=== PATIENT | female | born 1995 | race Caucasian/White ===

== ENCOUNTER 2016-11-06 23:49 | Emergency (ER) | payer MEDICAID ==
[2016-11-07] MEDS ORDERED: NORMAL SALINE 1000 ML 1,000 ML IV ONE (00:29)
[2016-11-07] MEDS ORDERED: ONDANSETRON HCL INJ/PF 4 MG/2 ML SDV IV ONE (00:29)
[2016-11-07 00:57] LABS: APPEARANCE,URINE SLIGHTLY-CLOUDY; BILIRUBIN,URINE NEGATIVE (NEGATIVE); GLUCOSE, URINE NEGATIVE (NEGATIVE); KETONES,URINE NEGATIVE (NEGATIVE); LEUKOCYTE ESTERASE,URINE NEGATIVE (NEGATIVE); NITRITE,URINE NEGATIVE (NEGATIVE); PROTEIN,URINE NEGATIVE (NEGATIVE); URINE SPECIFIC GRAVITY 1.025; UROBILINOGEN,URINE NEGATIVE mg/dL (<2.0)
[2016-11-07 01:14] LABS: ABSOLUTE EOSINOPHILS # (AUTO) 0.1 10^3/uL (0.0-0.6); ABSOLUTE MONOCYTES (AUTO) 0.5 10^3/uL (0.1-1.4); ABSOLUTE NEUT (AUTO) 4.1 10^3/uL (1.7-8.2); BASOPHILS % (AUTO) 0.2 % (0-2); EOSINOPHILS % (AUTO) 2.1 % (0-6); HEMATOCRIT 40.5 % (36.0-47.0); HEMOGLOBIN 13.7 g/dL (12.0-15.5); HGB HCT DIFFERENCE 0.6; LYMPHOCYTES % (AUTO) 17.6 % (13-45); MEAN CORPUSCULAR HEMOGLOBIN 29.8 pg (27.0-33.4); MEAN CORPUSCULAR HGB CONC 33.8 g/dL (32.0-36.0); MEAN CORPUSCULAR VOLUME 88 fl (80-97); MONOCYTES % (AUTO) 8.1 % (3-13); RED CELL DISTRIBUTION WIDTH 12.8 % (11.5-14.0); WHITE BLOOD COUNT 5.7 10^3/uL (4.0-10.5)
[2016-11-07 01:25] LABS: ALANINE AMINOTRANSFERASE 32 U/L (9-52); ALBUMIN 4.3 g/dL (3.5-5.0); ALKALINE PHOSPHATASE 79 U/L (38-126); ANION GAP 11 (5-19); ASPARTATE AMINO TRANSFERASE 25 U/L (14-36); BILIRUBIN,DIRECT 0.5 mg/dL (0.0-0.4); BILIRUBIN,TOTAL 0.8 mg/dL (0.2-1.3); BLOOD UREA NITROGEN 11 mg/dL (7-20); CALCIUM 9.8 mg/dL (8.4-10.2); CARBON DIOXIDE 25 mmol/L (22-30); CHLORIDE 106 mmol/L (98-107); CREATININE RESULT 0.64 mg/dL (0.52-1.25); GLUCOSE 107 mg/dL (75-110); POTASSIUM 4.5 mmol/L (3.6-5.0); SODIUM 141.7 mmol/L (137-145); TOTAL PROTEIN 7.7 g/dL (6.3-8.2)
--- NOTE | 2016-11-07 02:03 | ER Document Report ---
ED General - General Chief Complaint: Nausea/Vomiting Stated Complaint: PAIN UNDER LEFT BREAST/VOMITING Time Seen by Provider: 11/07/16 00:28 Notes: Patient is a 21-year-old female 3, pulse 1 prior who presents with 8 months of intermittent upper abdominal pain with associated nausea and vomiting. States that the pain occurs 3-4 times per week and is a stabbing, constant pain that lasts approximately 4-5 hours and then resolves. States she came to the emergency department tonight as the pain has not yet resolved within the time frame that it normally does. She has been trying over-the- counter Nexium without any resolution of her symptoms. Notes she is able to tolerate oral intake but she frequently comes nauseated when she attempts to eat. She is uncertain if there is relation of her pain to when she eats. She denies any dyspnea, hemoptysis or pleuritic pain. She has not seen a primary care doctor regarding today's concerns. TRAVEL OUTSIDE OF THE [place] IN LAST 30 DAYS: No - Related Data Allergies/Adverse Reactions: amoxicillin [Amoxicillin] Allergy (Intermediate, Verified 10/16/15 19:39) Hives Cillin family Allergy (Uncoded 10/16/15 19:39) Past Medical History - General Information source: Patient - Social History Smoking Status: Never Smoker Chew tobacco use (# tins/day): No Frequency of alcohol use: None Drug Abuse: None Lives with: Spouse/Significant other Family History: Reviewed & Not Pertinent Patient has suicidal ideation: No Patient has homicidal ideation: No Renal/ Medical History: Denies: Hx Peritoneal Dialysis Past Surgical History: Reports: Hx Section - Immunizations Hx Diphtheria, Pertussis, Tetanus Vaccination: Yes Review of Systems - Review of Systems Notes: Constitutional: Negative for fever. HENT: Negative for sore throat. Eyes: Negative for visual changes. Cardiovascular: Negative for chest pain. Respiratory: Negative for shortness of breath. Gastrointestinal: Positive for abdominal pain, vomiting. Genitourinary: Negative for dysuria. Musculoskeletal: Negative for back pain. Skin: Negative for rash. Neurological: Negative for headaches, weakness or numbness. 10 point ROS negative except as marked above and in HPI. Physical Exam - Vital signs Vitals: Temp Pulse Resp BP Pulse Ox 97.7 F 82 16 134/92 H 100 11/06/16 23:53 11/06/16 23:53 11/06/16 23:53 11/06/16 23:53 11/06/16 23:53 Interpretation: Normal Notes: PHYSICAL EXAMINATION: GENERAL: Well-appearing, well-nourished and in no acute distress. HEAD: Atraumatic, normocephalic. EYES: Pupils equal round and reactive to light, extraocular movements intact, sclera anicteric, conjunctiva are normal. ENT: nares patent, oropharynx clear without exudates. Moist mucous membranes. NECK: Normal range of motion, supple without lymphadenopathy LUNGS: Breath sounds clear to auscultation bilaterally and equal. No wheezes rales or rhonchi. HEART: Regular rate and rhythm without murmurs ABDOMEN: Soft, with epigastric and right upper quadrant tenderness to palpation. normoactive bowel sounds. No guarding, no rebound. No masses appreciated. EXTREMITIES: Normal range of motion, no pitting or edema. No cyanosis. NEUROLOGICAL: No focal neurological deficits. Moves all extremities spontaneously and on command. PSYCH: Normal mood, normal affect. SKIN: Warm, Dry, normal turgor, no rashes or lesions noted. Course - Re-evaluation Re-evalutation: 11/07/16 01:59 Patient presents clinical history and exam most consistent with symptomatic cholelithiasis. Patient has had progressive worsening of right upper quadrant pain worsened by eating but has been able to tolerate some oral intake. Vitals at time of arrival and on multiple reassessments remain non-concerning. Laboratories do not demonstrate a significant leukocytosis, LFT derangements, elevated bilirubin, alkaline phosphatase. A right upper quadrant ultrasound does not demonstrate evidence of acute cholecystitis. Patient is able to tolerate oral intake. At this time will discharge with return precautions and follow-up recommendations. Verbal discharge instructions given a the bedside and opportunity for questions given. Medication warnings reviewed. Patient is in agreement with this plan and has verbalized understanding of return precautions and the need for primary care follow-up in the next 24-72 hours. - Vital Signs Vital signs: Temp Pulse Resp BP Pulse Ox 97.7 F 82 16 134/92 H 100 11/06/16 23:53 11/06/16 23:53 11/06/16 23:53 11/06/16 23:53 11/06/16 23:53 - Laboratory Result Diagrams: 11/07/16 01:00 11/07/16 01:00 Laboratory results interpreted by me: 11/07/16 11/07/16 00:45 01:00 Direct Bilirubin 0.5 H Urine Blood SMALL H - Diagnostic Test Radiology reviewed: Reports reviewed Discharge - Discharge Clinical Impression: Symptomatic cholelithiasis Condition: Good Disposition: HOME, SELF-CARE Additional Instructions: Your ultrasound and history is most consistent with symptomatic cholelithiasis. This means that you have stones in your gallbladder that are causing pain when you eat fatty foods. You will likely need to have your gallbladder out in the coming weeks to prevent further pain. The best thing you can do at this time is to avoid fat-containing foods which will trigger your symptoms. Please contact the general surgeon listed in your discharge paperwork at your earliest ability for consultation regarding removal of your gallbladder. Please return to the emergency department if you develop persistent pain in your abdomen that will not go away, persistent vomiting, fever greater than 100.4F, pass out, or have any other symptoms that are concerning to you. Referrals: DALTON BELTRAN MD [ACTIVE STAFF] - Follow up as needed
--- NOTE | 2016-11-07 02:29 | RADIOLOGY REPORT (SQ) ---
EXAM DESCRIPTION: U/S ABDOMEN LIMITED W/O DOP COMPLETED DATE/TIME: 11/07/2016 2:09 am REASON FOR STUDY: ruq pain COMPARISON: 03/02/2015 TECHNIQUE: Dynamic and static grayscale images acquired of the abdomen and recorded on PACS. Additio nal selected color Doppler and spectral images recorded. LIMITATIONS: None. FINDINGS: PANCREAS: Partially visualized; No masses. Visualized pancreatic duct normal caliber. LIVER: No masses. Hepatic steatosis. LIVER VASCULATURE: Normal directional flow of the main portal vein and hepatic veins. GALLBLADDER: Multiple dependent gallstones without mural thickening or pericholecystic fluid. ULTRASOUND-DETECTED DUMONT'S SIGN: Negative. INTRAHEPATIC DUCTS AND COMMON DUCT: CBD and intrahepatic ducts normal caliber. No filling defects. INFERIOR VENA CAVA: Normal flow. AORTA: No aneurysm. RIGHT KIDNEY: Normal size. Normal echogenicity. No solid or suspicious masses. No hydronephrosis. No calcifications. PERITONEAL AND RIGHT PLEURAL SPACE: No ascites or effusions. OTHER: No other significant findings. IMPRESSION: Cholelithiasis without evidence of cholecystitis. TECHNICAL DOCUMENTATION: JOB ID: [id number] [employer]- All Rights Reserved
[2016-11-07 03:52] VITALS: BP 114/65
== END 2016-11-07 03:49 | disposition home or self-care (01) ==
LOC: ER 23:49
DX: K80.20 Calculus of gallbladder without cholecystitis without obstruction (principal); R11.2 Nausea with vomiting, unspecified; R10.11 Right upper quadrant pain
CPT/HCPCS: 99284; 96361; 96374; 36415; 85025; 80053; 81001; 76705; J2405; J7030

== ENCOUNTER 2017-08-10 03:38 | Observation (INO) | payer SELFPAY ==
[2017-08-10] MEDS ORDERED: KETOROLAC TROMETHAMINE INJ/PF 30 MG/1 ML SDV IV ONE (04:29)
[2017-08-10] MEDS ORDERED: DEXTROSE 5%-WATER 1000 ML 1,000 ML with SODIUM BICARBONATE 150 MEQ IV ONE ×2 (04:29)
[2017-08-10] MEDS ORDERED: NORMAL SALINE 1000 ML 1,000 ML IV ONE (04:29)
[2017-08-10] MEDS ORDERED: FENTANYL CITRATE INJ/PF 100 MCG/2 ML AMPUL IV ONE ×2 (04:29→06:41)
[2017-08-10] MEDS ORDERED: ONDANSETRON HCL INJ/PF 4 MG/2 ML SDV IV ONE (04:29)
--- NOTE | 2017-08-10 04:31 | ER Document Report ---
ED GI/ - General Chief Complaint: Abdominal Pain Stated Complaint: ABDOMINAL PAIN Time Seen by Provider: 08/10/17 04:23 Notes: Patient is a 21-year-old female who comes emergency department for chief complaint of upper abdominal pain that started at about 8 PM tonight, she states pain is sharp, she vomited 3 times, pain radiates around to her mid back. She has been told in the past that she does have gallstones. She denies fever or chills, had a loose bowel movement earlier today, just completed a course of azithromycin for a sinus infection. She denies lower abdominal pain. Only surgical history is . TRAVEL OUTSIDE OF THE [place] IN LAST 30 DAYS: No - Related Data Allergies/Adverse Reactions: amoxicillin [Amoxicillin] Allergy (Intermediate, Verified 10/16/15 19:39) Hives Cillin family Allergy (Uncoded 10/16/15 19:39) Past Medical History - General Information source: Patient - Social History Smoking Status: Never Smoker Frequency of alcohol use: None Drug Abuse: None Lives with: Family Family History: Reviewed & Not Pertinent - Medical History Medical History: Negative Renal/ Medical History: Denies: Hx Peritoneal Dialysis Past Surgical History: Reports: Hx Section - Immunizations Hx Diphtheria, Pertussis, Tetanus Vaccination: Yes Review of Systems - Review of Systems Constitutional: No symptoms reported EENT: No symptoms reported Cardiovascular: No symptoms reported Respiratory: No symptoms reported Gastrointestinal: See HPI Genitourinary: No symptoms reported Female Genitourinary: No symptoms reported Musculoskeletal: No symptoms reported Skin: No symptoms reported Hematologic/Lymphatic: No symptoms reported Neurological/Psychological: No symptoms reported Physical Exam - Vital signs Vitals: Temp Pulse Resp BP Pulse Ox 97.9 F 92 18 112/63 100 08/10/17 03:43 08/10/17 03:43 08/10/17 03:43 08/10/17 03:43 08/10/17 03:43 - General General appearance: Anxious In distress: Moderate - Patient appears to be in pain, holding her abdomen - HEENT Head: Normocephalic, Atraumatic Eyes: Normal Conjunctiva: Normal Extraocular movements intact: Yes Eyelashes: Normal Pupils: PERRL Mouth/Lips: Normal Mucous membranes: Normal Pharynx: Normal Neck: Normal - Respiratory Respiratory status: No respiratory distress Breath sounds: Normal. No: Decreased air movement, Wheezing - Cardiovascular Rhythm: Regular. No: Tachycardia Heart sounds: Normal auscultation, S1 appreciated, S2 appreciated - Abdominal Tenderness: Tender - Tender in the upper abdomen generally, worse in the epigastric area with guarding - Back Back: Normal, Nontender. No: Tender - Extremities General upper extremity: Normal inspection, Nontender, Normal ROM, Normal strength General lower extremity: Normal inspection, Nontender, Normal ROM, Normal strength. 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 Her medications symptoms did resolve. CBC, chemistry unremarkable, lipase unremarkable, test is negative. Urine shows dehydration. Patient was given IV fluids. She has been kept n.p.o. Ultrasound showing multiple gallstones, no acute findings. However on reexamination patient is having pain again. She states she is barely able to eat anything, cannot sleep for several nights because of the pain, and is requiring multiple doses for pain management. Will discuss with surgery. Dr. Brand evaluate the patient, will accept the patient for admission to go to the OR later. - Vital Signs Vital signs: Temp Pulse Resp BP Pulse Ox 97.9 F 105 H 18 112/63 100 08/10/17 04:30 08/10/17 04:30 08/10/17 04:30 08/10/17 04:30 08/10/17 04:30 - Laboratory Result Diagrams: 08/10/17 04:55 08/10/17 04:55 Laboratory results interpreted by me: 08/10/17 08/10/17 04:55 06:30 Carbon Dioxide 21 L Glucose 126 H Urine Protein 30 H Urine Blood MODERATE H Urine Urobilinogen 2.0 H Discharge - Discharge Clinical Impression: Epigastric pain Cholelithiasis Qualifiers: Cholelithiasis location: gallbladder Cholecystitis presence: without cholecystitis Biliary obstruction: without biliary obstruction Qualified Code(s) : K80.20 - Calculus of gallbladder without cholecystitis without obstruction Vomiting Qualifiers: Vomiting type: unspecified Vomiting Intractability: non-intractable Nausea presence: unspecified Qualified Code(s): R11.10 - Vomiting, unspecified Condition: Stable Disposition: ADMITTED OBSERVATION Admitting Provider: Surgicalist Unit Admitted: Surgical Floor
[2017-08-10 05:04] LABS: ABSOLUTE MONOCYTES (AUTO) 0.3 10^3/uL (0.1-1.4); ABSOLUTE NEUT (AUTO) 3.5 10^3/uL (1.7-8.2); BASOPHILS % (AUTO) 0.2 % (0-2); EOSINOPHILS % (AUTO) 0.7 % (0-6); HEMATOCRIT 40.8 % (36.0-47.0); HEMOGLOBIN 14.3 g/dL (12.0-15.5); LYMPHOCYTES % (AUTO) 20.2 % (13-45); MEAN CORPUSCULAR HEMOGLOBIN 30.1 pg (27.0-33.4); MEAN CORPUSCULAR VOLUME 86 fl (80-97); MONOCYTES % (AUTO) 6.3 % (3-13); PLATELET COUNT 175 10^3/uL (150-450); RED BLOOD COUNT 4.74 10^6/uL (3.72-5.28); RED CELL DISTRIBUTION WIDTH 12.7 % (11.5-14.0); SEGMENTED NEUTROPHILS % (AUTO) 72.6 % (42-78); TOTAL CELLS COUNTED % (AUTO) 100 %; WHITE BLOOD COUNT 4.8 10^3/uL (4.0-10.5)
[2017-08-10 05:25] LABS: ALANINE AMINOTRANSFERASE 45 U/L (9-52); ALBUMIN 4.5 g/dL (3.5-5.0); ALKALINE PHOSPHATASE 88 U/L (38-126); ANION GAP 18 (5-19); ASPARTATE AMINO TRANSFERASE 33 U/L (14-36); BILIRUBIN,DIRECT 0.2 mg/dL (0.0-0.4); BILIRUBIN,TOTAL 0.6 mg/dL (0.2-1.3); BLOOD UREA NITROGEN 8 mg/dL (7-20); CALCIUM 9.6 mg/dL (8.4-10.2); CARBON DIOXIDE 21 mmol/L (22-30); CHLORIDE 104 mmol/L (98-107); GLUCOSE 126 mg/dL (75-110); LIPASE 85.6 U/L (23-300); POTASSIUM 3.7 mmol/L (3.6-5.0); SODIUM 142.8 mmol/L (137-145)
--- NOTE | 2017-08-10 06:08 | RADIOLOGY REPORT (SQ) ---
EXAM DESCRIPTION: U/S ABDOMEN LIMITED W/O DOP CLINICAL HISTORY: 21 years, Female, epigastric pain, vomiting COMPARISON: 03/02/15 LIMITATIONS: None. FINDINGS: Moderate hepatic steatosis. Several layering gallstones. Negative sonographic Zurita's test. No intra or extrahepatic duct dilation. 0.4 cm diameter common bile duct. Pancreas, aorta, and 10 cm right kidney appear otherwise unremarkable. No free fluid. IMPRESSION: No acute findings. Cholelithiasis. Moderate hepatic steatosis.
[2017-08-10 06:43] LABS: AMORPHOUS SEDIMENT,URINE TRACE /HPF; APPEARANCE,URINE CLOUDY; BILIRUBIN,URINE NEGATIVE (NEGATIVE); COLOR,URINE AMBER; GLUCOSE, URINE NEGATIVE (NEGATIVE); KETONES,URINE NEGATIVE (NEGATIVE); LEUKOCYTE ESTERASE,URINE NEGATIVE (NEGATIVE); NITRITE,URINE NEGATIVE (NEGATIVE); PROTEIN,URINE 30 mg/dL (NEGATIVE); URINE SPECIFIC GRAVITY 1.032
[2017-08-10] MEDS ORDERED: NORMAL SALINE 1000 ML 1,000 ML IV PRN ×2 (07:12→12:30)
--- NOTE | 2017-08-10 07:55 | PDOC H&P ---
History of Present Illness Admission Date/PCP: 08/10/17 Patient complains of: abdominal pains History of Present Illness: AMANDA VENTURA is a 21 year old female c/o abdominal pains since last night asso nausea with minimal relief with pain meds. Known to have gallstones first noted on previous ED visit a few months ago. Past Surgical History Past Surgical History: Reports: Section Social History Lives with: Family Smoking Status: Never Smoker Frequency of Alcohol Use: None Family History Family History: Reviewed & Not Pertinent Parental Family History Reviewed: No Children Family History Reviewed: No Sibling(s) Family History Reviewed.: No Medication/Allergy Home Medications: Norgestimate-Ethinyl Estradiol [Ortho Tri-Cyclen] 1 tab PO DAILY 08/10/17 Allergies/Adverse Reactions: amoxicillin [Amoxicillin] Allergy (Intermediate, Verified 10/16/15 19:39) Hives Cillin family Allergy (Uncoded 10/16/15 19:39) Review of Systems Constitutional: PRESENT: anorexia Eyes: PRESENT: other Cardiovascular: PRESENT: other - no chest pain Respiratory: PRESENT: other - no dyspnea Gastrointestinal: PRESENT: abdominal pain, nausea Musculoskeletal: PRESENT: other - no joint pain Integumentary: PRESENT: other - no rash Neurological: PRESENT: other - no seizures Endocrine: PRESENT: other - no polyuria nor easy bruisability Physical Exam Vital Signs: Temp Pulse Resp BP Pulse Ox 97.9 F 105 H 18 112/63 100 08/10/17 04:30 08/10/17 04:30 08/10/17 04:30 08/10/17 04:30 08/10/17 04:30 Intake & Output 08/09/17 08/10/17 08/11/17 06:59 06:59 06:59 Weight 87.2 kg General appearance: PRESENT: mild distress Head exam: PRESENT: atraumatic, normocephalic Eye exam: PRESENT: conjunctiva pink Mouth exam: PRESENT: moist Neck exam: PRESENT: full ROM Respiratory exam: PRESENT: clear to auscultation evelina Cardiovascular exam: PRESENT: RRR Pulses: PRESENT: normal radial pulses Vascular exam: PRESENT: normal capillary refill GI/Abdominal exam: PRESENT: soft, tenderness - epigastric and RUQ Rectal exam: PRESENT: deferred Extremities exam: PRESENT: full ROM Musculoskeletal exam: PRESENT: ambulatory Neurological exam: PRESENT: alert, oriented to person, oriented to place, oriented to time, oriented to situation Psychiatric exam: PRESENT: anxious Skin exam: PRESENT: normal color, warm Results Laboratory Results: 08/10/17 04:55 08/10/17 04:55 08/10/17 08/10/17 08/10/17 04:55 04:55 04:55 WBC 4.8 RBC 4.74 Hgb 14.3 Hct 40.8 MCV 86 MCH 30.1 MCHC 35.0 RDW 12.7 Plt Count 175 Seg Neutrophils % 72.6 Lymphocytes % 20.2 Monocytes % 6.3 Eosinophils % 0.7 Basophils % 0.2 Absolute Neutrophils 3.5 Absolute Lymphocytes 1.0 Absolute Monocytes 0.3 Absolute Eosinophils 0.0 Absolute Basophils 0.0 Sodium 142.8 Potassium 3.7 Chloride 104 Carbon Dioxide 21 L Anion Gap 18 BUN 8 Creatinine 0.54 Est GFR ( Amer) > 60 Est GFR (Non-Af Amer) > 60 Glucose 126 H Calcium 9.6 Total Bilirubin 0.6 AST 33 ALT 45 Alkaline Phosphatase 88 Total Protein 7.0 Albumin 4.5 Lipase 85.6 Serum HCG, Qual NEGATIVE Urine Color Urine Appearance Urine pH Ur Specific [place] Urine Protein Urine Glucose (UA) Urine Ketones Urine Blood Urine Nitrite Ur Leukocyte Esterase Urine WBC (Auto) Urine RBC (Auto) 08/10/17 06:30 WBC RBC Hgb Hct MCV MCH MCHC RDW Plt Count Seg Neutrophils % Lymphocytes % Monocytes % Eosinophils % Basophils % Absolute Neutrophils Absolute Lymphocytes Absolute Monocytes Absolute Eosinophils Absolute Basophils Sodium Potassium Chloride Carbon Dioxide Anion Gap BUN Creatinine Est GFR ( Amer) Est GFR (Non-Af Amer) Glucose Calcium Total Bilirubin AST ALT Alkaline Phosphatase Total Protein Albumin Lipase Serum HCG, Qual Urine Color HEATHER Urine Appearance CLOUDY Urine pH 5.0 Ur Specific [place] 1.032 Urine Protein 30 H Urine Glucose (UA) NEGATIVE Urine Ketones NEGATIVE Urine Blood MODERATE H Urine Nitrite NEGATIVE Ur Leukocyte Esterase NEGATIVE Urine WBC (Auto) 3 Urine RBC (Auto) 15 Impressions: Abdomen Ultrasound 08/10/17 04:29 IMPRESSION: No acute findings. Cholelithiasis. Moderate hepatic steatosis. Assessment & Plan - Diagnosis (1) Cholelithiasis Qualifiers: Cholelithiasis location: gallbladder Cholecystitis presence: without cholecystitis Biliary obstruction: without biliary obstruction Qualified Code(s): K80.20 - Calculus of gallbladder without cholecystitis without obstruction - Time Time Spent: 30 to 50 Minutes - Inpatient Certification Based on my medical assessment, after consideration of the patient's comorbidities, presenting symptoms, or acuity I expect that the services needed warrant INPATIENT care.: No I certify that my determination is in accordance with my understanding of Medicare's requirements for reasonable and necessary INPATIENT services [42 CFR 412.3e].: Yes Medical Necessity: Need For IV Fluids, Need for Pain Control, Need for IV Antibiotics, Risk of Complication if Not Cared For in Hospital - Plan Summary Plan Summary: Hydrate IV antibiotics For [place]
[2017-08-10] MEDS ORDERED: VECURONIUM BROMIDE INJ 10 MG VIAL IV ONE (07:59)
[2017-08-10] MEDS ORDERED: NEOSTIGMINE METHYLSULFATE 10 MG/10 ML VIAL ONE (07:59)
[2017-08-10] MEDS ORDERED: GLYCOPYRROLATE INJ 0.4 MG/2 ML VIAL ONE (07:59)
[2017-08-10] MEDS ORDERED: PHENYLEPHRINE HCL INJ/PF 10 MG/1 ML SDV ONE (07:59)
[2017-08-10] MEDS ORDERED: SUCCINYLCHOLINE CHLORIDE INJ 200 MG/10 ML VIAL ONE (07:59)
[2017-08-10] MEDS ORDERED: BUPIVACAINE HCL 0.5%-EPI 1:200000 INJ/PF 30 ML VIAL ONE (08:20)
[2017-08-10] MEDS ORDERED: FENTANYL CITRATE INJ/PF 100 MCG/2 ML AMPUL ONE ×2 (09:27)
[2017-08-10] MEDS ORDERED: MIDAZOLAM 2 MG/2 ML INJ ONE (09:27)
[2017-08-10] MEDS ORDERED: LIDOCAINE 2% INJ-PF (20 MG/ML) 10 ML AMPUL ONE (09:27)
[2017-08-10] MEDS ORDERED: DEXAMETHASONE SOD PHOSPHATE INJ 4 MG/1 ML VIAL ONE (09:27)
[2017-08-10] MEDS ORDERED: ONDANSETRON HCL INJ/PF 4 MG/2 ML SDV ONE (09:27)
[2017-08-10] MEDS ORDERED: PROPOFOL INJ 200 MG/20 ML VIAL IV ONE (09:28)
[2017-08-10] MEDS ORDERED: ACETAMINOPHEN 100 ML IV ONE (09:28)
[2017-08-10] MEDS ORDERED: CEFAZOLIN INJ 1 GM VIAL ONE (09:36)
[2017-08-10] MEDS ORDERED: CLINDAMYCIN 600 MG/D5W RTU 600 MG/50 ML RTUPB IV ONE (10:04)
[2017-08-10] MEDS ORDERED: OXYCODONE-ACETAMINOPHEN 5-325 MG TABLET PO PRN ×3 (10:05→12:29)
[2017-08-10] MEDS ORDERED: MORPHINE SULFATE 10 MG/ML INJ IV PRN (10:05)
[2017-08-10] MEDS ORDERED: DIPHENHYDRAMINE HCL 50 MG/ML VIAL IV PRN (10:05)
[2017-08-10] MEDS ORDERED: ONDANSETRON HCL INJ/PF 4 MG/2 ML SDV IV PRN (10:05)
[2017-08-10] MEDS ORDERED: PROMETHAZINE HCL INJ 25 MG/1 ML VIAL IV PRN ×2 (10:05)
[2017-08-10] MEDS ORDERED: MEPERIDINE HCL/PF INJ 25 MG/1 ML DISP.SYRIN IV PRN (10:05)
[2017-08-10] MEDS ORDERED: FENTANYL CITRATE INJ/PF 100 MCG/2 ML AMPUL IV PRN ×3 (10:05)
[2017-08-10] MEDS ORDERED: PROMETHAZINE HCL INJ 25 MG/1 ML VIAL ONE (11:22)
[2017-08-10] MEDS ORDERED: HYDROMORPHONE HCL INJ/PF 2 MG/ML AMPULE ONE (11:27)
[2017-08-10] MEDS ORDERED: METOPROLOL TARTRATE PF/INJ 5 MG/5 ML SDV IV ONE (12:25)
[2017-08-10 12:28] LABS: ABSOLUTE LYMPHOCYTES (AUTO) 0.7 10^3/uL (0.5-4.7); ABSOLUTE MONOCYTES (AUTO) 0.1 10^3/uL (0.1-1.4); ABSOLUTE NEUT (AUTO) 4.1 10^3/uL (1.7-8.2); BASOPHILS % (AUTO) 0.1 % (0-2); EOSINOPHILS % (AUTO) 0.1 % (0-6); HEMATOCRIT 37.7 % (36.0-47.0); HEMOGLOBIN 13.3 g/dL (12.0-15.5); LYMPHOCYTES % (AUTO) 13.8 % (13-45); MEAN CORPUSCULAR HEMOGLOBIN 30.4 pg (27.0-33.4); MEAN CORPUSCULAR HGB CONC 35.2 g/dL (32.0-36.0); MEAN CORPUSCULAR VOLUME 87 fl (80-97); PLATELET COUNT 163 10^3/uL (150-450); RED BLOOD COUNT 4.37 10^6/uL (3.72-5.28); RED CELL DISTRIBUTION WIDTH 12.6 % (11.5-14.0); TOTAL CELLS COUNTED % (AUTO) 100 %; WHITE BLOOD COUNT 4.9 10^3/uL (4.0-10.5)
[2017-08-10] MEDS ORDERED: HYDROMORPHONE HCL INJ/PF 2 MG/ML AMPULE IV PRN (12:29)
[2017-08-10 12:34] LABS: ANION GAP 10 (5-19); BLOOD UREA NITROGEN 5 mg/dL (7-20); CALCIUM 8.8 mg/dL (8.4-10.2); CARBON DIOXIDE 21 mmol/L (22-30); CHLORIDE 108 mmol/L (98-107); GLUCOSE 120 mg/dL (75-110); POTASSIUM 3.8 mmol/L (3.6-5.0); SODIUM 139.1 mmol/L (137-145)
[2017-08-10] MEDS ORDERED: METOPROLOL SUCCINATE 25 MG TAB.SR.24H PO ONE (12:45)
--- NOTE | 2017-08-10 12:49 | PDOC CONSULTATION ---
Consultation Consult Date: 08/10/17 Attending physician:: KING ANN Consult reason:: Frequent ventricular ectopy and abnormal EKG postop History of Present Illness Admission Date/PCP: 08/10/17 08:01 Patient complains of: Chest pain History of Present Illness: AMANDA VENTURA is a 21 year old female c/o abdominal pains since last night asso nausea with mild relief with pain meds. Known to have gallstones first noted on previous ED visit a few months ago. This history was reviewed and confirmed. Patient underwent cholecystectomy this morning and in recovery was noted to have frequent ventricular ectopy in trigeminy pattern. A stat EKG showed T-wave inversion in anterior precordial and inferior lead. This seems unchanged from previous EKG from 2016 which had shown upright T waves, no ventricular ectopy and a sinus tachycardia rhythm. Patient also described some chest discomfort in the recovery room. She continues to have some discomfort at the incision site of her cholecystectomy surgery. Patient denied any prior history of heart problems. She describes family history of atrial fibrillation. Patient denied any other significant medical issues except for a and history of gallstone. Past Medical History Cardiac Medical History: Reports: None Pulmonary Medical History: Reports: None EENT Medical History: Reports: None Neurological Medical History: Reports: None Endocrine Medical History: Reports: None Renal/ Medical History: Reports: None Malignancy Medical History: Reports: None GI Medical History: Reports: Gastroesophageal Reflux Disease, Other - Cholecystectomy Musculoskeltal Medical History: Reports: None Skin Medical History: Reports: None Psychiatric Medical History: Reports: None Traumatic Medical History: Reports: None Hematology: Reports: None Infectious Medical History: Reports: None Past Surgical History Past Surgical History: Reports: Section Social History Information Source: Patient Lives with: Family Smoking Status: Never Smoker Frequency of Alcohol Use: None - Advance Directive Resuscitation Status: Full Code Family History Family History: Other - History of atrial fibrillation Parental Family History Reviewed: Yes Children Family History Reviewed: Yes Sibling(s) Family History Reviewed.: Yes Medication/Allergy Home Medications: Norgestimate-Ethinyl Estradiol [Ortho Tri-Cyclen] 1 tab PO DAILY 08/10/17 Allergies/Adverse Reactions: amoxicillin [Amoxicillin] Allergy (Intermediate, Verified 10/16/15 19:39) Hives Cillin family Allergy (Uncoded 10/16/15 19:39) Review of Systems Review of Systems: Please see history of present illness and past medical history as wall. Constitutional: No fever or chills reported. Head : No recent chronic headaches, recent head injury. Eyes: No recent eye pain, diplopia, redness, discharge, acute visual changes. Ears: No recent chronic ear pain, acute hearing loss, ear discharge. Oral cavity: No recent ulcerations, bleeding, oral cavity discomfort. Neck: No recent acute neck pain reported. Hematologic: No recent easy bruising or bleeding or hematologic malignancy reported. Lymphatic: No recent lymphatic malignancy, chronic lymphadenopathy reported yet Cardiovascular system review: See history of present illness. No prior history of overt syncope, near syncope or sustained palpitations. Respiratory system review: No recent chronic cough, hemoptysis, blood clots in the lungs reported. Mild Shortness of breath on exertion Gastrointestinal system review: Negative for any recent acute or chronic abdominal pain, hematemesis, melena, recent change in bowel habits. Genitourinary system review: No recent acute or chronic hematuria, flank pain, UTI etc. reported. Skin system review: Negative for any recent abnormal bruising, no rash, no pruritus reported. Neurologic: No prior history of strokes, mini strokes, seizure disorder. Psychologic: No history of major psychosis or major depression reported. Musculoskeletal: Minor aches and pains reported. No acute joint swelling reported. Endocrine: No recent polyuria, polydipsia, recent heat or cold intolerance. Physical Exam Vital Signs: Temp Pulse Resp BP Pulse Ox 97.7 F 89 18 132/89 H 100 08/10/17 07:59 08/10/17 07:59 08/10/17 07:59 08/10/17 07:59 08/10/17 07:59 Intake & Output 08/09/17 08/10/17 08/11/17 06:59 06:59 06:59 Intake Total 400 Output Total 400 Balance 0 Exam: GENERAL: well-nourished and in no acute distress. Alert and oriented x3 HEAD: Atraumatic, normocephalic. EYES: Pupils equal round and reactive to light, extraocular movements intact, sclera anicteric, conjunctiva are normal. ENT: TMs normal, nares patent, oropharynx clear without exudates. Moist mucous membranes. No oral ulcerations or bleeding gums noted NECK: supple without lymphadenopathy. Trachea is central. No cervical or axillary lymphadenopathy noted. Carotids are 2+, JVD WNL LUNGS: Respiration seems nonlabored, no significant accessory muscle action noted. Breath sounds clear to auscultation bilaterally and equal noted. No wheezes rales or rhonchi noted. No significant dullness noted on percussion. CHEST: Palpation of the chest wall shows no significant chest wall tenderness. No other significant abnormalities noted. 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 ABDOMEN: Soft, epigastric and right upper quadrant significant tenderness appreciated, normoactive bowel sounds. No guarding, no rebound. No rigidity noted . No masses appreciated. EXTREMITIES: Pedal pulses are 1-2+, no calf tenderness noted. No clubbing or cyanosis.trace negative pedal edema noted NEUROLOGICAL: Focused neurological exam showed no significant neurologic deficit. Normal speech, no focal weakness appreciated. PSYCH: Normal mood, normal affect. Judgment and insight within normal limits. SKIN: No significant ecchymosis, rash, ulcerations or signs of pruritus noted. MUSCULOSKELETAL EXAM: No significant joint swelling noted. Results Laboratory Results: 08/10/17 11:59 08/10/17 11:59 08/10/17 08/10/17 11:59 11:59 WBC 4.9 RBC 4.37 Hgb 13.3 Hct 37.7 MCV 87 MCH 30.4 MCHC 35.2 RDW 12.6 Plt Count 163 Seg Neutrophils % 83.0 H Lymphocytes % 13.8 Monocytes % 3.0 Eosinophils % 0.1 Basophils % 0.1 Absolute Neutrophils 4.1 Absolute Lymphocytes 0.7 Absolute Monocytes 0.1 Absolute Eosinophils 0.0 Absolute Basophils 0.0 Sodium 139.1 Potassium 3.8 Chloride 108 H Carbon Dioxide 21 L Anion Gap 10 BUN 5 L Creatinine 0.50 L Est GFR ( Amer) > 60 Est GFR (Non-Af Amer) > 60 Glucose 120 H Calcium 8.8 EKG Comments: Shows sinus rhythm, frequent VPCs in trigeminy pattern, nonspecific T-wave inversion inferior and anterior precordial lead. Impressions: Abdomen Ultrasound 08/10/17 04:29 IMPRESSION: No acute findings. Cholelithiasis. Moderate hepatic steatosis. Assessment & Plan - Diagnosis (1) Abnormal EKG Is this a current diagnosis for this admission?: Yes (2) Ventricular ectopy Is this a current diagnosis for this admission?: Yes (3) Chest pain Qualifiers: Chest pain type: unspecified Qualified Code(s): R07.9 - Chest pain, unspecified Is this a current diagnosis for this admission?: Yes (4) Epigastric pain Is this a current diagnosis for this admission?: Yes (5) Insomnia Qualifiers: Insomnia type: unspecified Qualified Code(s): G47.00 - Insomnia, unspecified Is this a current diagnosis for this admission?: Yes - Notes Notes: Patient seen in the PACU unit. Patient noted to have increased ventricular ectopy and some abnormal EKG changes. Give orders for IV Lopressor 5 mg and metoprolol succinate 25 mg p.o. to be given. Possibly effect of anesthesia. Will order a stat 2D echo to look for any structural cardiac abnormalities causing ectopy. As regards chest pain, doubt cardiac etiology in spite of some T-wave changes as pretest probability is pretty low on the list. Further evaluation if needed can be done as an outpatient. Will empirically place patient on proton pump inhibitor. Epigastric pain most likely related to recent surgery. Patient describes significant problems with insomnia. In addition she is noted to have hepatic steatosis. Hepatic steatosis is noted in sleep apnea syndrome. Patient may benefit from Madalyn evaluation as an outpatient. Patient will be monitored. - Time Time Spent: 30 to 50 Minutes - More than 50% of the time spent coordinating care , discussing management plans with involved caregivers. Management plans discussed with involved personnels. Medical decision making was of moderate to high complexity, patient's has multiple comorbidities. Medications reviewed and adjusted accordingly: Yes
--- NOTE | 2017-08-10 13:03 | OPERATIVE REPORT E ---
Operative Report NAME: AMANDA VETNURA : 1995 AGE: 21Y DATE OF SURGERY: 08/10/2017 ROOM: ED24 PREOPERATIVE DIAGNOSIS: CHOLELITHIASIS. POSTOPERATIVE DIAGNOSIS: ACUTE CALCULOUS CHOLECYSTITIS. OPERATION: Laparoscopic cholecystectomy. SURGEON: KING ANN M.D. ANESTHESIA: General. INDICATION: This is a 21-year-old female who has been known to have gallstones from previously being seen in the Emergency Room a few months ago. She came in last night with severe right upper quadrant epigastric pain and the ultrasound revealed gallstones. Her numbers are normal. Her pain has subsided quite a bit with parenteral pain medications. She remained very tender in the epigastric and right upper quadrant, which was radiating to her back. DESCRIPTION OF PROCEDURE: After adequate general anesthesia, the patient was placed in the supine position and the abdomen prepped and draped in the usual sterile fashion. Appropriate timeout was then called. Next, an infraumbilical small incision was made and the fascia identified and subsequently divided, and a Miguelina trocar inserted into the abdominal cavity. CO2 insufflated to a pressure of 15 mmHg. The camera was then inserted. Three other trocars were placed under direct vision, 12 mm in the epigastric, and two 5 mm in the right upper quadrant. The gallbladder was identified and noted to be distended and quite red and thickened wall. The gallbladder was then partially aspirated of whitish fluid through a long needle. The tip of the gallbladder was then subsequently grasped and pulled over the liver. The infundibulum also grasped, and the cystic duct was quite edematous around it. It was then dissected and subsequently clipped with Hemoclips and divided between the Hemoclips. It was quite obvious that the common duct was seen way down from the cystic duct. The cystic artery was then identified and clipped proximally and then divided with the use of Harmonic miriam within the clip and the gallbladder. The gallbladder was then taken off the liver bed with the use of Harmonic miriam. The gallbladder was then completely removed, placed in an Endobag, and pulled out through the umbilical port. The patient had a lot of stones. During the procedure, there was a lot of edema noted indicating acute cholecystitis. Further hemostasis then controlled with the use of spatula cautery. After adequate hemostasis noted and after irrigation, all the trocars were then removed and CO2 allowed to come out through all the trocar sites. The infraumbilical fascial defect closed with [id number] suture using #0 Vicryl, and all the skin incisions closed with running subcuticular 4-0 Vicryl undyed. Marcaine with epinephrine was then injected in the fascia and the skin and sub-Q layers of all the trocar sites. Sterile dressings placed over the operative sites. Needle, instrument, and sponge counts were all correct, and estimated blood loss about 10 mL. The patient then brought to the recovery room in satisfactory condition. DICTATING PHYSICIAN: KING ANN M.D. [id number] PHY#: [id number] ID: [id number] JOB#: [id number] ACCT: [id number] cc:KING NAN M.D. >
--- NOTE | 2017-08-10 13:10 | EKG REPORT ---
SEVERITY:- ABNORMAL ECG - SINUS RHYTHM VENTRICULAR TRIGEMINY NONSPECIFIC INTRAVENTRICULAR CONDUCTION DELAY : Confirmed by: Gómez Guillen MD 10-Aug-2017 13:08:54
--- NOTE | 2017-08-10 13:32 | RADIOLOGY REPORT (SQ) ---
EXAM DESCRIPTION: CHEST SINGLE VIEW COMPLETED DATE/TIME: 08/10/2017 1:24 pm REASON FOR STUDY: POST LAP AHSAN CHEST PAIN COMPARISON: Two-view chest 10/21/2015 EXAM PARAMETERS: NUMBER OF VIEWS: One view. TECHNIQUE: Single frontal radiographic view of the chest acquired. RADIATION DOSE: NA LIMITATIONS: Lordotic portable film, EKG leads over the chest FINDINGS: LUNGS AND PLEURA: No opacities, masses or pneumothorax. No pleural effusion. MEDIASTINUM AND HILAR STRUCTURES: No masses. Contour normal. HEART AND VASCULAR STRUCTURES: Heart normal in size. Normal vasculature. BONES: No acute findings. HARDWARE: None in the chest. Clips right upper quadrant post cholecystectomy OTHER: There is trace right and left subdiaphragmatic free air, patient post cholecystectomy IMPRESSION: Trace subdiaphragmatic free air likely postoperative in nature. No acute infiltrates. No pleural effusion or pneumothorax. TECHNICAL DOCUMENTATION: JOB ID: [id number] [employer]- All Rights Reserved Reading location - IP/workstation name: [email or web address]
[2017-08-10] MEDS ORDERED: PANTOPRAZOLE SODIUM 40 MG VIAL IV ONE (14:00)
[2017-08-10] MEDS: CLINDAMYCIN 600 MG/D5W RTU 600 MG/50 ML RTUPB IV SCH ×2 (15:56→21:22)
[2017-08-10] MEDS: LANSOPRAZOLE 30 MG TAB.RAP.DR PO SCH (17:58)
--- NOTE | 2017-08-10 18:45 | XCELERA REPORT ---
[address] [address] Transthoracic Echocardiogram Report Name: AMANDA VENTURA Age: 21 yrs Gender: Female : 1995 Patient Status: Inpatient Patient Location: [address] [place] [address] Study Date: 08/10/2017 01:38 PM Height: 62 in Weight: 192 lb BSA: 1.9 m2 Procedure: A complete two-dimensional transthoracic echocardiogram was performed (2D, M-mode, spectral and color flow Doppler). The study was technically difficult with many images being suboptimal in quality. Reason For Study: PVC'S CHEST PAIN ABNL EKG POST OP Ordering Physician: FABRICIO MATA Performed By: Archana Corado Interpretation Summary The left ventricular ejection fraction is preserved. There is borderline concentric left ventricular hypertrophy. LV diastolic function could not be adequately assessed. The left ventricle is grossly normal size. Wall motion cannot be accurately commented on, but no definite regional wall motion abnormalities noted. Right ventricular function cannot be assessed due to poor image quality. The left atrial size is normal. There is no mitral valve stenosis. There is a trace amount of mitral regurgitation No aortic regurgitation is present. There is no aortic valve stenosis There is a trace or physiologic amount of tricuspid regurgitation Tricuspid regurgitation jet envelope not well defined to measure RV systolic pressure accurately. The aortic root is not well visualized but is probably normal size. The inferior vena cava was not well visualized There is a mild amount of pulmonic regurgitation There is no pericardial effusion. MMode/2D Measurements & Calculations RVDd: 2.4 cm LVIDd: 4.4 cm FS: 36.7 % Ao root diam: 2.4 cm IVSd: 1.1 cm LVIDs: 2.8 cm EDV(Teich): 86.4 ml LVPWd: 0.97 cm ESV(Teich): 28.7 ml Ao root area: 4.5 cm2 EF(Teich): 66.8 % LA dimension: 2.8 cm Doppler Measurements & Calculations MV E max cristina: MV P1/2t max cristina: Ao V2 max: LV V1 max P.7 cm/sec 64.2 cm/sec 103.4 cm/sec 2.3 mmHg MV A max cristina: MV P1/2t: 66.5 msec Ao max PG: LV V1 max: 50.8 cm/sec 4.3 mmHg 76.0 cm/sec MV E/A: 1.3 MVA(P1/2t): 3.3 cm2 MV dec slope: 282.6 cm/sec2 PA V2 max: PI end-d cristina: TR max cristina: 74.0 cm/sec 101.8 cm/sec 217.2 cm/sec PA max PG: TR max P.2 mmHg 18.9 mmHg Left Ventricle The left ventricle is grossly normal size. There is borderline concentric left ventricular hypertrophy. The left ventricular ejection fraction is preserved. LV diastolic function could not be adequately assessed. Wall motion cannot be accurately commented on, but no definite regional wall motion abnormalities noted. Right Ventricle The right ventricle is not well visualized secondary to technical limitations. Right ventricular function cannot be assessed due to poor image quality. Atria The left atrial size is normal. Interarterial septum not well visualized and not well dopplered. Cannot comment on ASD/PFO presence. Mitral Valve The mitral valve is grossly normal. There is no mitral valve stenosis. There is a trace amount of mitral regurgitation. Aortic Valve The aortic valve is grossly normal. There is no aortic valve stenosis. No aortic regurgitation is present. Tricuspid Valve The tricuspid valve is not well visualized secondary to technical limitations. There is no tricuspid stenosis. There is a trace or physiologic amount of tricuspid regurgitation. Tricuspid regurgitation jet envelope not well defined to measure RV systolic pressure accurately. Pulmonic Valve The pulmonic valve is not well visualized. There is a mild amount of pulmonic regurgitation. Great Vessels The aortic root is not well visualized but is probably normal size. The inferior vena cava was not well visualized. Effusions There is no pericardial effusion. : FABRICIO MATA > Fabricio Mata
[2017-08-10] MEDS: HYDROCODONE/ACETAMINOPHEN 5-325 MG TABLET PO PRN (19:52)
[2017-08-11] MEDS: HYDROCODONE/ACETAMINOPHEN 5-325 MG TABLET PO PRN ×2 (00:06→08:40)
[2017-08-11] MEDS: CLINDAMYCIN 600 MG/D5W RTU 600 MG/50 ML RTUPB IV SCH ×2 (02:40→08:33)
[2017-08-11] MEDS: LANSOPRAZOLE 30 MG TAB.RAP.DR PO SCH (06:38)
[2017-08-11] MEDS ORDERED: METOPROLOL SUCCINATE 25 MG TAB.SR.24H PO SCH (10:00)
--- NOTE | 2017-08-11 10:26 | PDOC PROGRESS REPORT ---
Subjective Progress Note for:: 08/11/17 Subjective:: Patient seems to be doing better with significant improvement. Pt is denying any chest arm or neck discomfort. Patient denying any PND, orthopnea. Patient denied any sustained palpitations, dizziness, syncope, near syncope. Patient denying any fever chills. Patient denying any other significant discomfort. Patient is maintaining sinus rhythm. Review of systems: Rest review of systems negative. Medications: Medications have been reviewed. Reason For Visit: CHOLELITHIASIS,VOMITING,EPIGASTRIC PAIN Physical Exam Vital Signs: Temp Pulse Resp BP Pulse Ox 97.8 F 88 16 115/80 100 08/11/17 07:56 08/11/17 07:56 08/11/17 07:56 08/11/17 07:56 08/11/17 07:56 Intake & Output 08/10/17 08/11/17 08/12/17 06:59 06:59 06:59 Intake Total 4080 Output Total 1120 Balance 2960 Exam: GENERAL: well-nourished and in no acute distress. Alert and oriented x3 HEAD: Atraumatic, normocephalic. EYES: Pupils equal round and reactive to light, extraocular movements intact, sclera anicteric, conjunctiva are normal. ENT: TMs normal, nares patent, oropharynx clear without exudates. Moist mucous membranes. No oral ulcerations or bleeding gums noted NECK: supple without lymphadenopathy. Trachea is central. No cervical or axillary lymphadenopathy noted. Carotids are 2+, JVD WNL LUNGS: Respiration seems nonlabored, no significant accessory muscle action noted. Breath sounds clear to auscultation bilaterally and equal noted. No wheezes rales or rhonchi noted. No significant dullness noted on percussion. CHEST: Palpation of the chest wall shows no significant chest wall tenderness. No other significant abnormalities noted. 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 ABDOMEN: Soft, slight right upper quadrant tenderness appreciated, normoactive bowel sounds. No guarding, no rebound. No rigidity noted . No masses appreciated. EXTREMITIES: Pedal pulses are 1-2+, no calf tenderness noted. No clubbing or cyanosis.trace pedal edema noted NEUROLOGICAL: Focused neurological exam showed no significant neurologic deficit. Normal speech, no focal weakness appreciated. PSYCH: Normal mood, normal affect. Judgment and insight within normal limits. SKIN: No significant ecchymosis, rash, ulcerations or signs of pruritus noted. MUSCULOSKELETAL EXAM: No significant joint swelling noted. Results Laboratory Results: 08/10/17 11:59 08/10/17 11:59 08/10/17 08/10/17 11:59 11:59 WBC 4.9 RBC 4.37 Hgb 13.3 Hct 37.7 MCV 87 MCH 30.4 MCHC 35.2 RDW 12.6 Plt Count 163 Seg Neutrophils % 83.0 H Lymphocytes % 13.8 Monocytes % 3.0 Eosinophils % 0.1 Basophils % 0.1 Absolute Neutrophils 4.1 Absolute Lymphocytes 0.7 Absolute Monocytes 0.1 Absolute Eosinophils 0.0 Absolute Basophils 0.0 Sodium 139.1 Potassium 3.8 Chloride 108 H Carbon Dioxide 21 L Anion Gap 10 BUN 5 L Creatinine 0.50 L Est GFR ( Amer) > 60 Est GFR (Non-Af Amer) > 60 Glucose 120 H Calcium 8.8 EKG Comments: Telemetry strips shows sinus rhythm without any sustained tacky or bradycardia arrhythmias. Impressions: Chest X-Ray 08/10/17 00:00 IMPRESSION: Trace subdiaphragmatic free air likely postoperative in nature. No acute infiltrates. No pleural effusion or pneumothorax. Abdomen Ultrasound 08/10/17 04:29 IMPRESSION: No acute findings. Cholelithiasis. Moderate hepatic steatosis. Assessment & Plan - Diagnosis (1) Abnormal EKG Is this a current diagnosis for this admission?: Yes (2) Ventricular ectopy Is this a current diagnosis for this admission?: Yes (3) Chest pain Qualifiers: Chest pain type: unspecified Qualified Code(s): R07.9 - Chest pain, unspecified Is this a current diagnosis for this admission?: Yes (4) Epigastric pain Is this a current diagnosis for this admission?: Yes (5) Insomnia Qualifiers: Insomnia type: unspecified Qualified Code(s): G47.00 - Insomnia, unspecified Is this a current diagnosis for this admission?: Yes - Notes Notes: Abnormal electrocardiogram: 2D echo shows normal LVEF. However study was technically difficult. Will recommend a treadmill stress test as an outpatient. Ventricular ectopy: 2D echo shows normal LVEF, which puts her at low risk. However continue beta-robert therapy. Chest pain: Possibly acid reflux. Continue proton pump inhibitor. Epigastric pain: Improved Insomnia: Patient may have associated sleep apnea syndrome. Patient can follow- up with me if for her cardiac and sleep issues. Patient is cleared for discharge on beta-robert. Patient should have a follow- up appointment. - Time Time with patient: 15-25 minutes - CODE STATUS was discussed, patient remains full code. Surrogate decision-maker patient's . Multiple medical problems were addressed. More than 50% of the time spent coordinating care, discussing management plans with involved caregivers. Management plans discussed with involved personnels. Medical decision making was of moderate to high complexity, patient's has multiple comorbidities. Medications reviewed and adjusted accordingly: Yes
[2017-08-11 10:48] VITALS: BP 132/89
--- NOTE | 2017-08-12 08:08 | DISCHARGE SUMMARY E ---
Discharge Summary NAME: AMANDA VENTURA : 1995 AGE: 21Y ADMITTED: 08/10/2017 DISCHARGED: 08/11/2017 FINAL DIAGNOSIS: Acute calculous cholecystitis. PROCEDURE DONE: On 08/10/17 laparoscopic cholecystectomy. HOSPITAL COURSE: This is a 21-year-old female who underwent laparoscopic cholecystectomy for acute calculous cholecystitis on 08/10/17. Postoperatively, patient noted to have some PVCs and Cardiology was consulted. The patient had an echocardiogram and read by the car servicer. The patient apparently has been having unifocal PVCs. She was then discharged improved on 25 mg of Toprol-XL daily. She will be followed in the surgical clinic in 2 weeks and with her primary medical physician or car servicer, Dr. Herrera, in the next few weeks. She was advised not to do any lifting for the next 2 weeks. DICTATING PHYSICIAN: KING ANN M.D. [id number] PHY#: [id number] ID: [id number] JOB#: [id number] ACCT: [id number] cc:Nasim LANGSTON PA >
== END 2017-08-11 11:49 | disposition home or self-care (01) ==
LOC: ER 03:38 → EH 08:01 → 4S 14:32
PROVIDERS: ATTEND Surgery
PROC: 0FT44ZZ Resection of Gallbladder, Percutaneous Endoscopic Approach (ICD-10-PCS; principal; 2017-08-10 09:30)
DX: K80.10 Calculus of gallbladder with chronic cholecystitis without obstruction (principal); I97.89 Other postprocedural complications and disorders of the circulatory system, not elsewhere classified; I49.3 Ventricular premature depolarization; R07.89 Other chest pain; R94.31 Abnormal electrocardiogram [ECG] [EKG]; Y83.6 Removal of other organ (partial) (total) as the cause of abnormal reaction of the patient, or of later complication, without mention of misadventure at the time of the procedure; G47.00 Insomnia, unspecified; K76.0 Fatty (change of) liver, not elsewhere classified; Z82.49 Family history of ischemic heart disease and other diseases of the circulatory system; Z79.3 Long term (current) use of hormonal contraceptives; Z87.19 Personal history of other diseases of the digestive system
CPT/HCPCS: 96376; 99285; 96361; 96374; 96375; 36415; 83690; 84703; 85025; 80048; 80053; 81001; 88304 ×2; 93306; 71045; 76705; 93005; 93010; 47562; G0378 ×3; J2250; J3490 ×4; J1100; J3010; J1885; J1170; J2370; S0164; J2550; J0330; J2405; J7030; J2704; J0131; 790; J0690

== ENCOUNTER 2018-12-26 12:03 | Emergency (ER) | payer MEDICAID ==
[2018-12-26] MEDS ORDERED: ACETAMINOPHEN 325 MG TABLET PO ONE ×2 (12:33→18:19)
--- NOTE | 2018-12-26 12:35 | ER Document Report ---
ED Medical Screen (RME) - General Chief Complaint: Flank Pain Stated Complaint: FLANK PAIN Time Seen by Provider: 12/26/18 12:28 Primary Care Provider: CHEYENNE KAPLAN CNM [Primary Care Provider] - Follow up as needed Mode of Arrival: Medic Information source: Patient, Relative Notes: Patient presents emergency department via EMS with complaints of right-sided flank pain radiates to her right lower quad.. Reports it started Wednesday. Reports she is been diagnosed recently with UTI and is taking Macrobid. She reports vomited once from the pain. Reports she is experience hematuria. Patient is approximately 11 weeks G2, P1 patient is moaning took 1 Tyl enol 500 mg this morning at 530. I have greeted and performed a rapid initial assessment of this patient. A comprehensive ED assessment and evaluation of the patient, analysis of test results and completion of the medical decision making process will be conducted by additional ED providers. Dictation of this chart was performed using voice recognition software; therefore, there may be some unintended grammatical errors. TRAVEL OUTSIDE OF THE [place] IN LAST 30 DAYS: No - Related Data Allergies/Adverse Reactions: amoxicillin [Amoxicillin] Allergy (Intermediate, Verified 10/16/15 19:39) Hives Cillin family Allergy (Uncoded 10/16/15 19:39) Past Medical History Renal/ Medical History: Denies: Hx Peritoneal Dialysis GI Medical History: Reports: Hx Gastroesophageal Reflux Disease Past Surgical History: Reports: Hx Section - Immunizations Hx Diphtheria, Pertussis, Tetanus Vaccination: Yes History of Influenza Vaccine for 03/2017 - 08/2017 Season: Refused Physical Exam - Vital signs Vitals: Temp Pulse Resp BP Pulse Ox 97.6 F 106 H 21 H 122/64 97 12/26/18 12:17 12/26/18 12:17 12/26/18 12:17 12/26/18 12:17 12/26/18 12:17 Course - Vital Signs Vital signs: Temp Pulse Resp BP Pulse Ox 97.6 F 106 H 21 H 122/64 97 12/26/18 12:17 12/26/18 12:17 12/26/18 12:17 12/26/18 12:17 12/26/18 12:17 - Laboratory Result Diagrams: 12/26/18 12:47 12/26/18 12:47 Laboratory results interpreted by me: 12/26/18 12/26/18 12:47 16:38 WBC 11.7 H Seg Neutrophils % 86.5 H Lymphocytes % 7.7 L Absolute Neutrophils 10.1 H Urine Ketones 80 H Urine Blood LARGE H Doctor's Discharge - Discharge Referrals: CHEYENNE KAPLAN CNM [Primary Care Provider] - Follow up as needed
[2018-12-26 12:59] LABS: ABSOLUTE EOSINOPHILS # (AUTO) 0.1 10^3/uL (0.0-0.6); ABSOLUTE LYMPHOCYTES (AUTO) 0.9 10^3/uL (0.5-4.7); ABSOLUTE MONOCYTES (AUTO) 0.6 10^3/uL (0.1-1.4); ABSOLUTE NEUT (AUTO) 10.1 10^3/uL (1.7-8.2); BASOPHILS % (AUTO) 0.1 % (0-2); EOSINOPHILS % (AUTO) 0.5 % (0-6); HEMOGLOBIN 14.2 g/dL (12.0-15.5); LYMPHOCYTES % (AUTO) 7.7 % (13-45); MEAN CORPUSCULAR HGB CONC 33.9 g/dL (32.0-36.0); MEAN CORPUSCULAR VOLUME 88 fl (80-97); MONOCYTES % (AUTO) 5.2 % (3-13); PLATELET COUNT 254 10^3/uL (150-450); RED BLOOD COUNT 4.75 10^6/uL (3.72-5.28); RED CELL DISTRIBUTION WIDTH 13.5 % (11.5-14.0); SEGMENTED NEUTROPHILS % (AUTO) 86.5 % (42-78); TOTAL CELLS COUNTED % (AUTO) 100 %; WHITE BLOOD COUNT 11.7 10^3/uL (4.0-10.5)
[2018-12-26 13:16] LABS: ALANINE AMINOTRANSFERASE 18 U/L (9-52); ALBUMIN 4.3 g/dL (3.5-5.0); ALKALINE PHOSPHATASE 64 U/L (38-126); ANION GAP 9 (5-19); ASPARTATE AMINO TRANSFERASE 20 U/L (14-36); BILIRUBIN,DIRECT 0.2 mg/dL (0.0-0.4); BILIRUBIN,TOTAL 0.5 mg/dL (0.2-1.3); BLOOD UREA NITROGEN 7 mg/dL (7-20); CALCIUM 9.8 mg/dL (8.4-10.2); CARBON DIOXIDE 25 mmol/L (22-30); CHLORIDE 105 mmol/L (98-107); GLUCOSE 95 mg/dL (75-110); POTASSIUM 4.5 mmol/L (3.6-5.0); SODIUM 138.9 mmol/L (137-145); TOTAL PROTEIN 7.5 g/dL (6.3-8.2)
[2018-12-26 17:26] LABS: APPEARANCE,URINE SLIGHTLY-CLOUDY; BILIRUBIN,URINE NEGATIVE (NEGATIVE); COLOR,URINE YELLOW; GLUCOSE, URINE NEGATIVE (NEGATIVE); KETONES,URINE 80 mg/dL (NEGATIVE); LEUKOCYTE ESTERASE,URINE NEGATIVE (NEGATIVE); NITRITE,URINE NEGATIVE (NEGATIVE); PROTEIN,URINE NEGATIVE (NEGATIVE); UROBILINOGEN,URINE NEGATIVE mg/dL (<2.0)
[2018-12-26] MEDS ORDERED: METOCLOPRAMIDE HCL 10 MG TABLET PO ONE (18:20)
[2018-12-26] MEDS ORDERED: DIPHENHYDRAMINE HCL 25 MG CAPSULE PO ONE (18:20)
--- NOTE | 2018-12-26 18:22 | ER Document Report ---
ED GI/ - General Chief Complaint: Flank Pain Stated Complaint: FLANK PAIN Time Seen by Provider: 12/26/18 12:28 Primary Care Provider: [facility] [Provider Group] - Follow up in 3-5 days CHEYENNE KAPLAN CNM [Primary Care Provider] - Follow up as needed Mode of Arrival: Ambulatory Information source: Patient Notes: 23-year-old female presented to ED for complaint of right-sided flank pain. It radiates around to the right lower quadrant. She states that started this morning. She states she was seen by her primary care doctor on Wednesday and diagnosed with UTI and started on Macrobid. She states she vomited once due to pain but has not been nauseated since then. Patient is 1 weeks 2 para 1. She states she took one Tylenol at 530 this morning and then she received Tylenol in the emergency room. She states she does have a headache and would like some Tylenol again now if it is time. Patient is alert oriented respirations regular and unlabored speaking in full sentences walks with a even steady gait. TRAVEL OUTSIDE OF THE [place] IN LAST 30 DAYS: No - HPI Patient complains to provider of: Flank pain, Onset: Other - Pain started today Timing/Duration: Gradual Quality of pain: Sharp Severity at maximum: Moderate Pain Level: Denies Location: Right flank Menstrual period history: : 2 Para: 1 OB ultrasound done: Yes vitamins taken: Yes Associated symptoms: Hematuria, Nausea - The pain, Radiates to back, Other - Headache Exacerbated by: Movement, Walking Relieved by: Denies Similar symptoms previously: Yes Recently seen / treated by doctor: Yes - Related Data Allergies/Adverse Reactions: amoxicillin [Amoxicillin] Allergy (Intermediate, Verified 10/16/15 19:39) Hives Cillin family Allergy (Uncoded 10/16/15 19:39) Past Medical History - General Information source: Patient, Relative - Social History Smoking Status: Never Smoker Frequency of alcohol use: None Drug Abuse: None Lives with: Family Family History: Reviewed & Not Pertinent, Other Patient has suicidal ideation: No Patient has homicidal ideation: No - Past Medical History Cardiac Medical History: Reports: None Pulmonary Medical History: Reports: None EENT Medical History: Reports: None Neurological Medical History: Reports: None Endocrine Medical History: Reports: None Renal/ Medical History: Reports: None Malignancy Medical History: Reports: None GI Medical History: Reports: Hx Gastroesophageal Reflux Disease Musculoskeletal Medical History: Reports None Skin Medical History: Reports None Psychiatric Medical History: Reports: None Traumatic Medical History: Reports: None Infectious Medical History: Reports: None Past Surgical History: Reports: Hx Section, Hx Cholecystectomy - Immunizations Hx Diphtheria, Pertussis, Tetanus Vaccination: Yes Review of Systems - Review of Systems Constitutional: No symptoms reported EENT: No symptoms reported Cardiovascular: No symptoms reported Respiratory: No symptoms reported Gastrointestinal: No symptoms reported Genitourinary: Flank pain, Hematuria Female Genitourinary: No symptoms reported Musculoskeletal: No symptoms reported Skin: No symptoms reported Hematologic/Lymphatic: No symptoms reported Neurological/Psychological: No symptoms reported Physical Exam - Vital signs Vitals: Temp Pulse Resp BP Pulse Ox 97.6 F 106 H 21 H 122/64 97 12/26/18 12:17 12/26/18 12:17 12/26/18 12:17 12/26/18 12:17 12/26/18 12:17 Interpretation: Normal - General General appearance: Appears well, Alert - HEENT Head: Normocephalic, Atraumatic Eyes: Normal Pupils: PERRL - Respiratory Respiratory status: No respiratory distress Chest status: Nontender Breath sounds: Normal Chest palpation: Normal - Cardiovascular Rhythm: Regular Heart sounds: Normal auscultation Murmur: No - Abdominal Inspection: Normal Distension: No distension Bowel sounds: Normal Tenderness: Tender - Right flank Organomegaly: No organomegaly - Back Back: Normal, Nontender - Extremities General upper extremity: Normal inspection, Nontender, Normal color, Normal ROM, Normal temperature General lower extremity: Normal inspection, Nontender, Normal color, Normal ROM, Normal temperature, Normal weight bearing. No: Sun's sign - Neurological Neuro grossly intact: Yes Cognition: Normal Orientation: AAOx4 [place] Coma Scale Eye Opening: Spontaneous Vania Coma Scale Verbal: Oriented Vania Coma Scale Motor: Obeys Commands Vania Coma Scale Total: 15 Speech: Normal Motor strength normal: LUE, RUE, LLE, RLE Sensory: Normal - Psychological Associated symptoms: Normal affect, Normal mood - Skin Skin Temperature: Warm Skin Moisture: Dry Skin Color: Normal Course - Re-evaluation Re-evalutation: 12/26/18 22:24 As an ultrasound discussed with patient and written report of ultrasound given to patient to follow-up with her [facility]. Patient was treated with Reglan Tylenol and Benadryl for her headache and IV fluids for her positive ketones in the urine. There was no protein in the urine which patient was concerned about. She did have hydronephrosis with no obvious kidney stone. Patient was instructed to follow-up with [facility] within the next 2 to 3 days and to take all lab results and ultrasound results with her at that visit. Patient verbalized understanding and agreement with treatment plan and patient was discharged home with a prescription for Reglan. - Vital Signs Vital signs: Temp Pulse Resp BP Pulse Ox 98.2 F 88 20 124/69 100 12/26/18 20:52 12/26/18 20:52 12/26/18 20:52 12/26/18 20:52 12/26/18 20:52 - Laboratory Result Diagrams: 12/26/18 12:47 12/26/18 12:47 Laboratory results interpreted by me: 12/26/18 12/26/18 12:47 16:38 WBC 11.7 H Seg Neutrophils % 86.5 H Lymphocytes % 7.7 L Absolute Neutrophils 10.1 H Urine Ketones 80 H Urine Blood LARGE H - Diagnostic Test Radiology reviewed: Image reviewed, Reports reviewed Discharge - Discharge Clinical Impression: Hydronephrosis Qualifiers: Hydronephrosis type: unspecified Qualified Code(s): N13.30 - Unspecified hydronephrosis Condition: Stable Disposition: HOME, SELF-CARE Additional Instructions: Flank Pain We weren't able to prove an exact cause for your flank pain. Pain in the flank can be caused by a muscle strain or spasm. Sometimes a kidney stone causes pain, but can't be found on our tests. Infection in the kidney should be evident on a urine test. Early shingles can occasionally cause flank pain, without the rash that proves the diagnosis. On rare occasions, disease of the pancreas, aorta, spleen, or colon can create pain in the flank. At this time, there's no evidence of a dangerous condition, and it seems safe for you to be at home. If the pain goes away and does not come back, no further testing will be needed. If pain persists, or becomes more severe, we may need to repeat some tests or order additional new testing. Blood in the urine, urgency to urinate frequently, and pain that radiates to the groin can indicate a kidney stone. Fever may mean that the pain is due to infection, either of the kidney or the colon (diverticulitis). If your pain is early shingles, you should develop an eruption of blisters in the painful area within a few days. Call the doctor or return if you have pain that is spreading or becoming m ore severe, pain that does not resolve with time, fever, or any other new symptoms. You do have a mild swelling to the right kidney. You did have blood in your urine. So you possibly had a kidney stone and passed it. They did not see a stone on the ultrasound. We will need to monitor your urine. Your urine did not show a UTI at this time just the elevated ketones which means you need to drink more fluids. You have been treated with a liter of fluids in the emergency room. You also had a headache and you were treated with Tylenol Zofran and Benadryl. HEADACHE: The physician does not feel that the headache you are experiencing has a serious underlying cause. Most headaches are due to emotional stress, with resultant muscle tension (tension headache). Occasionally, headaches are secondary to changes in the blood vessels of the scalp (vascular headache and migraine headache). Sometimes, a headache is the first symptom of another developing illness, such as a viral infection. You have no evidence of stroke, bleeding, meningitis, or other serious cause of your headache. The treatment of headaches varies with the severity and cause of the pain. Not all headaches need pain shots. In fact, there is evidence that using narcotics for headaches may make them worse in the long run. The physician will determine the therapy that's in your best interest. If you develop a fever, if the headache is different from any you've previously experienced, or if the headache progressively worsens, then call your physician at once or go to the emergency room. REGLAN (METOCLOPRAMIDE): Reglan has been prescribed. This medicine affects the stomach and intestines. It can be used to treat nausea and vomiting, to prevent reflux of stomach acid up into the esophagus, or to increase the contractions of the stomach and intestines. It is often prescribed for esophagitis, and for paralysis of the stomach in diabetics. Reglan can cause either mild restlessness or drowsiness. You should contact the doctor at once if you become extremely restless, anxious, or cannot sleep, or if you develop uncontrollable motions of the lips, tongue, or jaw. Do not take alcohol with this medicine. Do not drive or operate machinery until you have been taking this medicine long enough to know how it affects you. Call the doctor if you develop abdominal pains, lightheadedness, black stool, or blood in the stool or vomitus. USE OF DIPHENHYDRAMINE: Diphenhydramine (Benadryl) is an antihistamine and has been recommended to help treat your headache and to prevent side effects of other medications used to treat headaches. The medication can be repeated four times daily. Age Elixir (12.5 mg/tsp) 25 mg pill adult 1-2 tabs Antihistamines may cause drowsiness, especially with the first dose. Do not operate machinery or drive while under the effects of the medication. Do n ot combine the medication with alcohol, or with any other medication without talking to your doctor. INTRAVENOUS COMPAZINE FOR HEADACHE: You have received therapy for headaches, using intravenous Compazine. This treatment is dramatically successful in relieving the headache in about 50 percent of cases. When it works, it provides a rapid method of eliminating the headache without resorting to narcotics (and the problems associated with them). Most patients still feel fully alert after the Compazine, but others may be slightly drowsy. It's best not to drive or work with machinery for six to eight hours. Do not take alcohol or other medication unless you discuss it with the doctor. If you develop tightness and spasms in your muscles, especially the neck and tongue, you should return. This is a side effect which can be treated. Acetaminophen Acetaminophen may be taken for pain relief or fever control. It's much safer than aspirin, offering a wider range of "safe" dosages. It is safe during . Some brand names are Tylenol, Panadol, Datril, Anacin 3, Tempra, and Liquiprin. Acetaminophen can be repeated every four hours. The following are maximum recommended dosages: WEIGHT Dose Drops Elixir Chewable(80mg) (LBS.) drprs=droppers tsp=teaspoon 6 40 mg .4 ml (1/2) 6-11 80 mg .8 ml (full) 1/2 tsp 1 tab 12-16 120 mg 1 1/2 drprs 3/4 tsp 1 1/2 tabs 17-23 160 mg 2 drprs 1 tsp 2 tabs 24-30 240 mg 3 drprs 1 1/2 tsp 3 tabs 30-35 320 mg 2 tsp 4 tabs 36-41 360 mg 2 1/4 tsp 4 1/2 tabs 42-47 400 mg 2 1/2 tsp 5 tabs 48-53 480 mg 3 tsp 6 tabs 54-59 520 mg 3 1/4 tsp 6 1/2 tabs 60-64 560 mg 3 1/2 tsp 7 tabs 65-70 600 mg 3 3/4 tsp 7 1/2 tabs 71-76 640 mg 4 tsp 8 tabs 77-82 720 mg 4 1/2 tsp 9 tabs 83-88 800 mg 5 tsp 10 tabs >89 pounds or adults 650 mg to 900 mg Acetaminophen can be repeated every four hours. Maximum daily dose not to exceed 4000 mg. These maximum recommended dosages are slightly higher than the dosages written on the product container, but these dosages are very safe and well below the toxic dosage for acetaminophen. FOLLOW-UP CARE: If you have been referred to a physician for follow-up care, call the physicians office for an appointment as you were instructed or within the next two days. If you experience worsening or a significant change in your symptoms, notify the physician immediately or return to the Emergency Department at any time for re-evaluation. Prescriptions: Metoclopramide HCl [Reglan 10 mg Tablet] 10 mg PO Q6HP PRN #14 tablet PRN Reason: Forms: Return to Work Referrals: CHEYENNE KAPLAN CNM [Primary Care Provider] - Follow up as needed [facility] [Provider Group] - Follow up in 3-5 days
[2018-12-26] MEDS ORDERED: NORMAL SALINE 1000 ML 1,000 ML IV ONE (18:30)
--- NOTE | 2018-12-26 19:43 | RADIOLOGY REPORT (SQ) ---
EXAM DESCRIPTION: U/S RETROPERITON (RENAL/AORTA) COMPLETED DATE/TIME: 12/26/2018 7:13 pm REASON FOR STUDY: Right flank pain COMPARISON: None. TECHNIQUE: Dynamic and static grayscale images acquired of the kidneys and bladder and recorded on P ACS. Additional selected color Doppler and spectral images recorded. LIMITATIONS: None. FINDINGS: RIGHT KIDNEY: Normal size. Normal echogenicity. No solid or suspicious masses. Mild hydro nephrosis. No calcifications. LEFT KIDNEY: Normal size. Normal echogenicity. No solid or suspicious masses. No hydronephrosis. No calcifications. BLADDER: No masses. OTHER FINDINGS: No other significant finding. IMPRESSION: Mild right hydronephrosis. TECHNICAL DOCUMENTATION: JOB ID: [id number] [id number] 2010 [employer]- All Rights Reserved Reading location - IP/workstation name: [email or web address]
--- NOTE | 2018-12-26 19:46 | RADIOLOGY REPORT (SQ) ---
EXAM DESCRIPTION: U/S 1TRIMESTER/1GEST W/DOPPLER COMPLETED DATE/TIME: 12/26/2018 7:14 pm REASON FOR STUDY: 11 weeks questionable vaginal bleeding COMPARISON: None. TECHNIQUE: Transabdominal static and realtime grayscale images acquired of the pelvis. Additional se lected spectral and color Doppler images recorded. All images stored on PACs. bHCG: Not available. CLINICAL DATES: 11 weeks 3 days LIMITATIONS: None. FINDINGS: FETUS: Single Living intrauterine . ULTRASOUND EGA: 11 weeks 3 days CRL: 4.6 cm FHR: 171 beats per minute. SURVEY: No visualized anomalies. AMNIOTIC FLUID: Adequate amount. PLACENTA: Not yet developed due to early gestation. SUBCHORIONIC BLEED: No SIZE OF BLEED: Not applicable. UTERUS: No masses. No anomalies. CERVICAL LENGTH: 3.1 cm Closed. RIGHT ADNEXA: Normal ovary with normal vascular flow. No adnexal free fluid. No adnexal masses. LEFT ADNEXA: Normal ovary with normal vascular flow. No adnexal free fluid. No adnexal masses. FREE FLUID: None. OTHER: No other significant finding. IMPRESSION: LIVING INTRAUTERINE . EGA of 11 weeks 3 days Trimester of : First - 0 to 13 weeks. TECHNICAL DOCUMENTATION: JOB ID: [id number] [place]-72 2010 [employer]- All Rights Reserved rev Reading location - IP/workstation name: [employer]
[2018-12-26 20:56] VITALS: BP 124/69
== END 2018-12-26 21:02 | disposition home or self-care (01) ==
LOC: ER 12:03
DX: N13.30 Unspecified hydronephrosis (principal); R10.9 Unspecified abdominal pain; R11.2 Nausea with vomiting, unspecified; R51 Headache; M54.9 Dorsalgia, unspecified
CPT/HCPCS: 99284; 36415; 85025; 80053; 81001; 76801; 76770; 93976; J3490 ×3; J7030

== ENCOUNTER 2019-07-05 12:06 | Outpatient (CLI) | payer MEDICAID ==
--- NOTE | 2019-07-05 17:41 | Non Stress Test Report ---
Non Stress Test Datetime Report Generated by CPN: 07/05/2019 17:40 DEMOGRAPHIC EGA NST: 38.5 INDICATION Indication for Study (NST) Other: GDM - nonreactive NST in office Indication for Study (NST) Other: GDM; nonreactive NST in clinic VITAL SIGNS Temperature - NST: 98.6 Temperature - NST: 98.6 Pulse - NST: 99 Pulse - NST: 99 RESP - NST: 16 NBPSYS NST: 104 NBPSYS NST: 104 NBPDIA NST: 61 NBPDIA NST: 61 MONITORING Monitor Explained: Monitor Explained; Test Explained; Patient Verbalized Understanding Monitor Explained: Monitor Explained; Test Explained; Patient Verbalized Understanding Time on Monitor: 07/05/2019 12:20 Time on Monitor: 07/05/2019 12:20 Time on Monitor: 07/05/2019 12:19 Time off Monitor: 07/05/2019 13:08 NST Duration: 48 NST INTERVENTIONS NST Interventions: PO Hydration NST Interventions: PO Hydration; Reposition Patient Physician Notified NST: Javy Escobar CNM BABY A: [id number] BABY A Movement : Present Contraction Frequency : none FHR Baseline : 140 Accelerations : 15X15 Accelerations : 15X15 Decelerations : Variable Variability : Moderate 6-25bpm Variability : Moderate 6-25bpm NST Review: Meets Criteria for Reactive NST NST Review and Verified By : Deejay Martinez RN NST Results: Reactive NST REPORT Report Trigger: Send Report
== END 2019-07-05 13:17 | disposition home or self-care (01) ==
LOC: LC 12:06
PROVIDERS: ATTEND Obstetrics & Gynecology
PROC: 4A1HXCZ Monitoring of Products of Conception, Cardiac Rate, External Approach (ICD-10-PCS; principal; 2019-07-05)
DX: O24.419 Gestational diabetes mellitus in pregnancy, unspecified control (principal); Z3A.38 38 weeks gestation of pregnancy
CPT/HCPCS: 59025

== ENCOUNTER 2019-07-07 05:12 | Inpatient (IN) | payer MEDICAID ==
[2019-07-05 12:42] LABS: ABSOLUTE LYMPHOCYTES (AUTO) 0.8 10^3/uL (0.5-4.7); ABSOLUTE MONOCYTES (AUTO) 0.4 10^3/uL (0.1-1.4); ABSOLUTE NEUT (AUTO) 4.8 10^3/uL (1.7-8.2); BASOPHILS % (AUTO) 0.2 % (0-2); EOSINOPHILS % (AUTO) 0.8 % (0-6); HEMOGLOBIN 11.6 g/dL (12.0-15.5); LYMPHOCYTES % (AUTO) 13.5 % (13-45); MEAN CORPUSCULAR HEMOGLOBIN 29.1 pg (27.0-33.4); MEAN CORPUSCULAR HGB CONC 35.1 g/dL (32.0-36.0); MEAN CORPUSCULAR VOLUME 83 fl (80-97); MONOCYTES % (AUTO) 5.9 % (3-13); PLATELET COUNT 188 10^3/uL (150-450); RED BLOOD COUNT 3.98 10^6/uL (3.72-5.28); RED CELL DISTRIBUTION WIDTH 14.2 % (11.5-14.0); SEGMENTED NEUTROPHILS % (AUTO) 79.6 % (42-78); TOTAL CELLS COUNTED % (AUTO) 100 %; WHITE BLOOD COUNT 6.1 10^3/uL (4.0-10.5)
[2019-07-05 12:49] LABS: APPEARANCE,URINE SLIGHTLY-CLOUDY; BILIRUBIN,URINE NEGATIVE (NEGATIVE); COLOR,URINE YELLOW; GLUCOSE, URINE NEGATIVE (NEGATIVE); KETONES,URINE TRACE mg/dL (NEGATIVE); LEUKOCYTE ESTERASE,URINE NEGATIVE (NEGATIVE); NITRITE,URINE NEGATIVE (NEGATIVE); PROTEIN,URINE 30 mg/dL (NEGATIVE); URINE SPECIFIC GRAVITY 1.019
[2019-07-05 13:09] LABS: URINE AMPHETAMINES SCREEN NEGATIVE; URINE BARBITURATES SCREEN NEGATIVE; URINE BENZODIAZEPINES SCREEN NEGATIVE; URINE COCAINE SCREEN NEGATIVE; URINE MARIJUANA (THC) SCREEN NEGATIVE; URINE METHADONE SCREEN NEGATIVE; URINE PHENCYCLIDINE SCREEN NEGATIVE
[~2019-07-07 05:12] MED LIST: CEFAZOLIN SODIUM 2 GM in DEXTROSE 5%-WATER 100 ML IV PRN; LIDOCAINE 0.5% INJ-PF (5 MG/ML) 50 ML SDV SUBCUT PRN
[2019-07-07] MEDS ORDERED: RINGERS SOLUTION,LACTATED 1,000 ML IV ONE (06:30)
[2019-07-07] MEDS: LACTATED RINGERS 1000 ML IV PRN ×2 (06:50→14:31)
[2019-07-07] MEDS ORDERED: CEFAZOLIN INJ 1 GM VIAL ONE (07:10)
[2019-07-07] MEDS ORDERED: PHENYLEPHRINE HCL INJ/PF 10 MG/1 ML SDV ONE (07:27)
[2019-07-07] MEDS ORDERED: EPHEDRINE SULFATE INJ 50 MG/1 ML AMPULE ONE (07:27)
[2019-07-07] MEDS ORDERED: MIDAZOLAM 2 MG/2 ML INJ ONE (07:27)
[2019-07-07] MEDS ORDERED: OXYTOCIN 10 UNIT/ML VIAL ONE (07:27)
[2019-07-07] MEDS ORDERED: PROPOFOL INJ 200 MG/20 ML VIAL IV ONE (07:27)
[2019-07-07] MEDS ORDERED: FENTANYL CITRATE INJ/PF 100 MCG/2 ML AMPUL ONE (07:27)
[2019-07-07] MEDS ORDERED: OXYTOCIN/NORMAL SALINE 20 UNIT/1,000 ML RTUINJ ONE (07:28)
[2019-07-07] MEDS ORDERED: METHYLERGONOVINE MALEATE INJ/PF 0.2 MG/1 ML AMPULE ONE (07:28)
[2019-07-07] MEDS ORDERED: ONDANSETRON HCL INJ/PF 4 MG/2 ML SDV ONE (07:28)
[2019-07-07] MEDS ORDERED: ACETAMINOPHEN 1,000 MG/100 ML RTUPB IV ONE (07:29)
[2019-07-07] MEDS ORDERED: PROMETHAZINE HCL INJ 25 MG/1 ML VIAL IV PRN ×3 (07:40→09:31)
[2019-07-07] MEDS ORDERED: FENTANYL CITRATE INJ/PF 100 MCG/2 ML AMPUL IV PRN ×3 (07:40)
[2019-07-07] MEDS ORDERED: MORPHINE SULFATE 10 MG/ML INJ IV PRN (07:40)
[2019-07-07] MEDS ORDERED: DIPHENHYDRAMINE HCL 50 MG/ML VIAL IV PRN (07:40)
[2019-07-07] MEDS ORDERED: MISOPROSTOL 0.2 MG TABLET ONE (09:12)
[2019-07-07] MEDS ORDERED: MEPERIDINE HCL/PF INJ 25 MG/1 ML DISP.SYRIN ONE (09:25)
[2019-07-07] MEDS: MEPERIDINE HCL/PF INJ 25 MG/1 ML DISP.SYRIN IV PRN ×2 (09:29→09:43)
[2019-07-07] MEDS ORDERED: DIPH/PERTUSS(ACELL)/TETANUS VAC/PF 0.5 ML SYR (>=10YO) IM PRN (09:31)
[2019-07-07] MEDS ORDERED: ACETAMINOPHEN 1,000 MG/100 ML RTUPB IV PRN (09:31)
[2019-07-07] MEDS ORDERED: MEASLES,MUMPS&RUBELLA VACC/PF 0.5 ML VIAL SUBCUT PRN (09:31)
[2019-07-07] MEDS ORDERED: RINGERS SOLUTION,LACTATED 1,000 ML IV PRN (09:31)
[2019-07-07] MEDS ORDERED: OXYTOCIN/NORMAL SALINE 20 UNIT/1,000 ML RTUINJ IV PRN (09:31)
[2019-07-07] MEDS ORDERED: ACETAMINOPHEN 325 MG TABLET PO PRN (09:31)
[2019-07-07] MEDS ORDERED: SIMETHICONE 80 MG TAB.CHEW PO PRN (09:31)
--- NOTE | 2019-07-07 09:44 | Brief Operative Note ---
BRIEF OPERATIVE REPORT DATE OF SURGERY: 07/07/19 TIME OF SURGERY: 08:00 PREOPERATIVE DIAGNOSIS: PUND at 39+0ega, H/o section, Polyhydramnios POSTOPERATIVE DIAGNOSIS: CHRISTIE - delivered SURGEON: MIRNA UNGER FINDINGS: VMI delivered at 0836, weigth 8#11oz, Apgars 8/9. Normal Bilateral tubes and ovaries. normal gravid uterus. COMPLICATIONS: none ESTIMATED BLOOD LOSS: 700ml TISSUE REMOVED OR ALTERED: placenta and cord not sent to pathology TECHNICAL PROCEDURE: Repeat section, Scar Revision
--- NOTE | 2019-07-07 09:54 | Operative Report ---
Operative Report DATE OF SURGERY: 07/07/19 PREOPERATIVE DIAGNOSIS: PUND at 39+0ega, H/o section, Polyhydramnios, A2GDM with poor compliance POSTOPERATIVE DIAGNOSIS: CHRISTIE - delivered OPERATION: Repeat section, Scar Revision SURGEON: MIRNA UNGER ANESTHESIA: Spinal TISSUE REMOVED OR ALTERED: placenta and cord not sent to pathology COMPLICATIONS: none ESTIMATED BLOOD LOSS: 700ml QUANTITATIVE BLOOD LOSS: 397 INTRAOPERATIVE FINDINGS: VMI delivered at 0836, weigth 8#11oz, Apgars 8/9. Normal Bilateral tubes and ovaries. normal gravid uterus. Double nuchal cord with cord also around right hand times two. PROCEDURE: Anesthesia provider: [Dragan Rowland CRNA, MD] Urine output: [125ml] IV fluids: [1000ml] Indications: [23yo at 39+0ega (KELVIN 07/14/2019) presents for scheduled repeat section. She has a history of section for 8#15oz baby with Arrest of labor. This is also complicated by polyhydramnios. A2GDM on Glyburide - moderately compliant. She desires Mirena IUD for contraception . The risks, benefits, alternatives were reviewed and she desires to proceed with planned procedure. ] Procedure: The patient was taken to the operating room where spinal anesthesia was obtained and found to be adequate. She was then prepped and draped in the normal sterile fashion and placed in the dorsal supine position with a leftward tilt. The prior Pfannenstiel skin incision was excised and then carried through to the underlying layers of the fascia with the scalpel. The fascia was incised in the midline and the incision extended laterally with the Ruffin scissors. The superior aspect of the fascial incision was then grasped with Ronn clamps elevated and the underlying rectus muscles dissected off [shraply] due to scarring. Attention was then turned to the inferior aspect of the fascial incision which in a similar fashion was grasped, tented up with Ronn clamps, and the rectus muscles dissected off [bluntly]. The rectus muscles were then in the midline and the peritoneum at the amount identified and entered [bluntly]. The peritoneal incision was then extended superiorly and inferiorly with good visualization of the bladder. The bladder blade was inserted and the vesicouterine peritoneum identified grasped with Cypriot pickups and entered sharply with the Metzenbaum scissors. This incision was then extended laterally with the Metzenbaum scissors and a bladder flap created digitally. The bladder blade was then reinserted and the lower uterine segment incised in a transverse fashion with the scalpel. The uterine incision was then extended bluntly. The bladder blade was removed and the 's head was delivered from cephalic presentation atraumatically with significant polyhydramnios noted and double nuchal cord. The nose and mouth were suctioned and the cord doubly clamped and cut. And the was handed off to waiting pediatricians. The placenta was then delivered spontaneously and the uterus exteriorized and cleared of all clots and debris. The uterine incision was then repaired with 1- 0 Vicryl in a running locked fashion. A second layer of the same suture was used to obtain hemostasis via imbrication of the initial layer. The bladder flap was then repaired with 3-0 chromic in a running fashion. The uterus was returned to the patient's abdomen and The gutters were cleared of all clots and debris. All operative sites were noted to be hemostatic. The fascia was reapproximated with 0 Vicryl in a running fashion from each lateral edge to the midline. The skin was closed with 3-0 Monocryl in a running subcuticular fa shion with overlying Dermabond for additional dressing as well as wound closure. The patient tolerated the procedure well. Sponge lap needle and instrument counts are correct times 2. 2 g of Ancef were given prior to skin incision. The patient was taken to the recovery area awake and in stable condition.
--- NOTE | 2019-07-07 10:04 | PDOC DELIVERY SUMMARY ---
Delivery Summary - Maternal Hx : II Hx Para: I Hx # Term Pregnancies: 1 Hx # Pregnancies: 0 Hx Total # of Abortions (Sponateous & Elective): 0 Number of Living Children: 1 KELVIN: 07/14/19 Gestational Age: 39 Risk Factors: Previous , Gestational Diabetes, Polyhydramnios Ruptured Membranes: AROM Time of Rupture: 08:35 Fluids: Clear, Poly Hydramnios - Delivery Labor: Not In Labor Presentation: Vertex Heart Rate Monitoring: Done Pre-Operatively Uterine Contraction Monitoring: External Support Person Present: Yes Location: OR : Scheduled Placenta: Within Normal Limits Placenta Description: normal Number of Vessels (Cord): 3 Nuchal Cord: Yes - times two Delivery of Placenta Date: 07/07/19 Delivery of Placenta Time: 08:37 Estimated Blood Loss: 700 Delivery Quantitative Blood Loss (QBL): 397 - Medications Type of Anesthesia:: Spinal - Delivery Medications Delivery Meds: Cytotec 1000mcg Per Rectum/Vagina - Assess and Care Baby 1 Male Delivery of Infant Date: 07/07/19 Delivery of Time: 08:36 at 1 minute: 8 at 5 minutes: 9 Preprinted Number On Band: [id number] Skin to Skin: No To Nursery At: 08:48 Mode of Transport: Bassinet Infant Delivery Weight: 3,945 Infant Delivery Length: 21 in - Delivery Personnel Nursery RN: SARAHI RATLIFF Nursery RN: CASPER WADE RN: JUANPABLO BUTLER MD: MIRNA UNGER
[2019-07-07] MEDS: DOCUSATE SODIUM 100 MG CAPSULE PO SCH ×2 (12:12→17:49)
[2019-07-07] MEDS: PRENATAL VITAMIN W DHA CAPSULE PO SCH (12:13)
[2019-07-07] MEDS: HYDROMORPHONE HCL INJ/PF 2 MG/ML AMPULE IV PRN ×2 (12:27→19:31)
[2019-07-07] MEDS: KETOROLAC TROMETHAMINE INJ/PF 30 MG/1 ML SDV IV SCH ×2 (14:07→22:26)
[2019-07-08] MEDS: KETOROLAC TROMETHAMINE INJ/PF 30 MG/1 ML SDV IV SCH (05:01)
[2019-07-08 07:49] LABS: HEMATOCRIT 29.3 % (36.0-47.0); HEMOGLOBIN 10.1 g/dL (12.0-15.5); MEAN CORPUSCULAR HEMOGLOBIN 28.9 pg (27.0-33.4); MEAN CORPUSCULAR HGB CONC 34.5 g/dL (32.0-36.0); MEAN CORPUSCULAR VOLUME 84 fl (80-97); PLATELET COUNT 132 10^3/uL (150-450); RED CELL DISTRIBUTION WIDTH 14.4 % (11.5-14.0); WHITE BLOOD COUNT 7.3 10^3/uL (4.0-10.5)
--- NOTE | 2019-07-08 10:16 | PDOC PROGRESS REPORT ---
Subjective-OB Progress Note for:: 07/08/19 Subjective: Pt doing well, no complaints. She reports light bleeding, reg diet and voiding without difficulty. No flatus. Physical Exam (OB) Vital Signs: Temp Pulse Resp BP Pulse Ox 98.0 F 76 18 117/68 99 07/08/19 07:42 07/08/19 07:42 07/08/19 07:42 07/08/19 07:42 07/08/19 07:42 Intake & Output 07/07/19 07/08/19 07/09/19 06:59 06:59 06:59 Intake Total 749 960 Output Total 2225 300 Balance 749 -1265 -300 Weight 94.999 kg - PIH/Pre-Eclampsia DTR's: 2 + Clonus: Negative Headache: Absent Epigastric Pain: No Visual Changes: No - Dressing Removed: No Incision: Well Approximated Closure Type: Surgical Glue - Lochia Lochia Amount: Scant < 10 ml Lochia Color: Rubra/Red - Abdomen Description: Tender, Soft, Round Hernia Present: No Fundal Description: Firm, Midline Fundal Height: u/u - u/2 Objective-Diagnostic Laboratory: 07/08/19 07:30 07/08/19 07:30 WBC 7.3 RBC 3.50 L Hgb 10.1 L Hct 29.3 L MCV 84 MCH 28.9 MCHC 34.5 RDW 14.4 H Plt Count 132 L Assessment and Plan(PN) - Assessment and Plan (1) History of section Is this a current diagnosis for this admission?: Yes (2) Polyhydramnios in ferro in third trimester Is this a current diagnosis for this admission?: Yes (3) Status post repeat low transverse section Is this a current diagnosis for this admission?: Yes - Time Spent with Patient Time with patient: Less than 15 minutes Medications reviewed and adjusted accordingly: Yes - Disposition Anticipated Discharge: Home Within: within 24 hours
[2019-07-08] MEDS: DOCUSATE SODIUM 100 MG CAPSULE PO SCH ×2 (10:35→18:55)
[2019-07-08] MEDS: PRENATAL VITAMIN W DHA CAPSULE PO SCH (10:35)
[2019-07-08] MEDS: OXYCODONE-ACETAMINOPHEN 5-325 MG TABLET PO PRN ×2 (11:44→22:44)
[2019-07-08] MEDS: IBUPROFEN 800 MG TABLET PO SCH ×2 (11:45→18:55)
[2019-07-09] MEDS: IBUPROFEN 800 MG TABLET PO SCH ×5 (00:56→23:00)
[2019-07-09] MEDS: DOCUSATE SODIUM 100 MG CAPSULE PO SCH ×2 (09:59→17:16)
[2019-07-09] MEDS: PRENATAL VITAMIN W DHA CAPSULE PO SCH (09:59)
--- NOTE | 2019-07-09 10:43 | PDOC DISCHARGE SUMMARY ---
Impression - Admit/DC Date/PCP Admission Date/Primary Care Provider: 07/07/19 05:12 JUANPABLO LOVE MD Discharge Date: 07/09/19 - Discharge Diagnosis (1) History of section Is this a current diagnosis for this admission?: Yes (2) Polyhydramnios in ferro in third trimester Is this a current diagnosis for this admission?: Yes (3) Status post repeat low transverse section Is this a current diagnosis for this admission?: Yes - Additional Information Resuscitation Status: Full Code Discharge Diet: Regular Discharge Activity: Balance Activity w/Rest, No Lifting Over 10 Pounds, No Lifting/Push/Pulling, Pelvic Rest, No tub bath Referrals: [facility] [Provider Group] Prescriptions: Oxycodone HCl/Acetaminophen [Percocet 5-325 mg Tablet] 1 tab PO Q4HP PRN #30 tablet PRN Reason: Ibuprofen [Motrin 800 mg Tablet] 800 mg PO Q8HP PRN #60 tablet PRN Reason: Home Medications: Prenat 115/Iron Fum/Folic/Dss [ 19 Tablet] 1 tab PO DAILY 07/05/19 Ibuprofen [Motrin 800 mg Tablet] 800 mg PO Q8HP PRN #60 tablet 07/09/19 Oxycodone HCl/Acetaminophen [Percocet 5-325 mg Tablet] 1 tab PO Q4HP PRN #30 tablet 07/09/19 Results Laboratory Results: WBC 7.3 10^3/uL (4.0-10.5) 07/08/19 07:30 RBC 3.50 10^6/uL (3.72-5.28) L 07/08/19 07:30 Hgb 10.1 g/dL (12.0-15.5) L 07/08/19 07:30 Hct 29.3 % (36.0-47.0) L 07/08/19 07:30 MCV 84 fl (80-97) 07/08/19 07:30 MCH 28.9 pg (27.0-33.4) 07/08/19 07:30 MCHC 34.5 g/dL (32.0-36.0) 07/08/19 07:30 RDW 14.4 % (11.5-14.0) H 07/08/19 07:30 Plt Count 132 10^3/uL (150-450) L 07/08/19 07:30 Lymph % (Auto) 13.5 % (13-45) 07/05/19 11:46 [place] % (Auto) 5.9 % (3-13) 07/05/19 11:46 Eos % (Auto) 0.8 % (0-6) 07/05/19 11:46 Baso % (Auto) 0.2 % (0-2) 07/05/19 11:46 Absolute Neuts (auto) 4.8 10^3/uL (1.7-8.2) 07/05/19 11:46 Absolute Lymphs (auto) 0.8 10^3/uL (0.5-4.7) 07/05/19 11:46 Absolute Monos (auto) 0.4 10^3/uL (0.1-1.4) 07/05/19 11:46 Absolute Eos (auto) 0.0 10^3/uL (0.0-0.6) 07/05/19 11:46 Absolute Basos (auto) 0.0 10^3/uL (0.0-0.2) 07/05/19 11:46 Seg Neutrophils % 79.6 % (42-78) H 07/05/19 11:46 POC Glucose 111 mg/dL (70-110) H 07/07/19 05:37 Urine Color YELLOW 07/05/19 11:46 Urine Appearance SLIGHTLY-CLOUDY 07/05/19 11:46 Urine pH 6.0 (5.0-9.0) 07/05/19 11:46 Ur Specific [place] 1.019 07/05/19 11:46 Urine Protein 30 mg/dL (NEGATIVE) H 07/05/19 11:46 Urine Glucose (UA) NEGATIVE mg/dL (NEGATIVE) 07/05/19 11:46 Urine Ketones TRACE mg/dL (NEGATIVE) H 07/05/19 11:46 Urine Blood SMALL (NEGATIVE) H 07/05/19 11:46 Urine Nitrite NEGATIVE (NEGATIVE) 07/05/19 11:46 Urine Bilirubin NEGATIVE (NEGATIVE) 07/05/19 11:46 Urine Urobilinogen 2.0 mg/dL (<2.0) H 07/05/19 11:46 Ur Leukocyte Esterase NEGATIVE (NEGATIVE) 07/05/19 11:46 Urine WBC (Auto) 5 /HPF 07/05/19 11:46 Urine RBC (Auto) 11 /HPF 07/05/19 11:46 Urine Bacteria (Auto) TRACE /HPF 07/05/19 11:46 Squamous Epi Cells Auto 5 /HPF 07/05/19 11:46 Urine Mucus (Auto) FEW /LPF 07/05/19 11:46 Urine Ascorbic Acid NEGATIVE (NEGATIVE) 07/05/19 11:46 Urine Opiates Screen NEGATIVE 07/05/19 11:46 Urine Methadone Screen NEGATIVE 07/05/19 11:46 Ur Barbiturates Screen NEGATIVE 07/05/19 11:46 Ur Phencyclidine Scrn NEGATIVE 07/05/19 11:46 Ur Amphetamines Screen NEGATIVE 07/05/19 11:46 U Benzodiazepines Scrn NEGATIVE 07/05/19 11:46 Urine Cocaine Screen NEGATIVE 07/05/19 11:46 U Marijuana (THC) Screen NEGATIVE 07/05/19 11:46 Blood Type O POSITIVE 07/05/19 11:46 Antibody Screen NEGATIVE 07/05/19 11:46
[2019-07-09] MEDS: OXYCODONE-ACETAMINOPHEN 5-325 MG TABLET PO PRN (17:16)
[2019-07-10] MEDS: OXYCODONE-ACETAMINOPHEN 5-325 MG TABLET PO PRN (03:55)
[2019-07-10] MEDS: IBUPROFEN 800 MG TABLET PO SCH ×2 (05:13→12:14)
[2019-07-10] MEDS: PRENATAL VITAMIN W DHA CAPSULE PO SCH (11:05)
[2019-07-10] MEDS: DOCUSATE SODIUM 100 MG CAPSULE PO SCH (11:05)
[2019-07-10 13:43] VITALS: BP 110/68
== END 2019-07-10 14:40 | disposition home or self-care (01) | DRG 788 ==
LOC: 2N 05:12 → 2S 06:30
PROVIDERS: ADMIT Student in an Organized Health Care Education/Training Program; ATTEND Student in an Organized Health Care Education/Training Program
PROC: 10D00Z1 Extraction of Products of Conception, Low, Open Approach (ICD-10-PCS; principal; 2019-07-10)
PROC: 3E0234Z Introduction of Serum, Toxoid and Vaccine into Muscle, Percutaneous Approach (ICD-10-PCS; 2019-07-10)
DX: O24.425 Gestational diabetes mellitus in childbirth, controlled by oral hypoglycemic drugs (principal); O40.3XX0 Polyhydramnios, third trimester, not applicable or unspecified; O34.219 Maternal care for unspecified type scar from previous cesarean delivery; O34.211 Maternal care for low transverse scar from previous cesarean delivery; O69.81X0 Labor and delivery complicated by cord around neck, without compression, not applicable or unspecified; Z3A.39 39 weeks gestation of pregnancy; Z37.0 Single live birth; Z23 Encounter for immunization
CPT/HCPCS: 1961; 36415; 59025; 80307; 81001; 82962; 85025; 85027; 86850; 86900; 86901; 90715; 94799; J0131; J0690; J1170; J1885; J2175; J2210; J2250; J2370; J2405; J2590; J2704; J3010; J3490; J7060; J7120

== ENCOUNTER 2020-02-24 01:35 | Emergency (ER) | payer MEDICAID ==
[2020-02-24 02:14] LABS: APPEARANCE,URINE CLOUDY; BILIRUBIN,URINE NEGATIVE (NEGATIVE); CALCIUM OXALATE CRYSTALS,URINE FEW /HPF; COLOR,URINE AMBER; GLUCOSE, URINE NEGATIVE (NEGATIVE); KETONES,URINE NEGATIVE (NEGATIVE); LEUKOCYTE ESTERASE,URINE TRACE (NEGATIVE); NITRITE,URINE NEGATIVE (NEGATIVE); PROTEIN,URINE 30 mg/dL (NEGATIVE); URINE SPECIFIC GRAVITY 1.024; UROBILINOGEN,URINE NEGATIVE mg/dL (<2.0)
[2020-02-24 02:27] LABS: HEMATOCRIT 39.2 % (36.0-47.0); HEMOGLOBIN 13.7 g/dL (12.0-15.5); MEAN CORPUSCULAR HEMOGLOBIN 30.1 pg (27.0-33.4); MEAN CORPUSCULAR HGB CONC 34.9 g/dL (32.0-36.0); MEAN CORPUSCULAR VOLUME 86 fl (80-97); PLATELET COUNT 179 10^3/uL (150-450); RED BLOOD COUNT 4.55 10^6/uL (3.72-5.28); RED CELL DISTRIBUTION WIDTH 14.7 % (11.5-14.0); WHITE BLOOD COUNT 4.7 10^3/uL (4.0-10.5)
--- NOTE | 2020-02-24 02:35 | ER Document Report ---
ED General - General Chief Complaint: Suicidal Ideation Stated Complaint: PSYCH Time Seen by Provider: 02/24/20 01:54 Primary Care Provider: JUANPABLO LOVE MD [ACTIVE PROVISIONAL STAFF] - Follow up as needed TRAVEL OUTSIDE OF THE [place] IN LAST 30 DAYS: No - HPI Context: This is a 24-year-old female with a history of depression presenting to the emergency department for medical screening exam and behavioral health evaluation after getting into an argument with her [id number] earlier tonight. Reportedly the patient states she is frequently antagonized by her m vilxa-er-fen and got so frustrated tonight she made the comment "on my just kill myself to get away from her." Patient is denying suicidal ideation or homicidal ideation. Patient states she is being seen at [facility] for issues related to her depression. She states her vptvtz-[id number] is an exacerbating factor and major stressor in her life. The patient states there are no alleviating iss ues in terms of the perpetual discord she has with her culdhx-pz-xah. Patient states that the ugcszv-jq-ici called the police "just out of spite" after their argument earlier tonight. Associated symptoms: None Exacerbated by: Other - See HPI Relieved by: Other - See HPI - Related Data Allergies/Adverse Reactions: amoxicillin [Amoxicillin] Allergy (Intermediate, Verified 07/05/19 12:29) Hives Cillin family Allergy (Uncoded 07/05/19 12:29) Past Medical History - General Information source: Patient - Social History Smoking Status: Never Smoker Family History: Reviewed & Not Pertinent, Other Endocrine Medical History: Denies: Hx Hyperthyroidism, Hx Hypothyroidism Renal/ Medical History: Denies: Hx Peritoneal Dialysis GI Medical History: Reports: Hx Gastroesophageal Reflux Disease. Denies: Hx Hiatal Hernia, Hx Ulcer Psychiatric Medical History: Reports: Other - History of depression Infectious Medical History: Denies: Hx HIV Past Surgical History: Reports: Hx Section, Hx Cholecystectomy - Immunizations Hx Diphtheria, Pertussis, Tetanus Vaccination: Yes Review of Systems - Review of Systems Constitutional: No symptoms reported EENT: No symptoms reported Cardiovascular: No symptoms reported Respiratory: No symptoms reported Gastrointestinal: No symptoms reported Genitourinary: No symptoms reported Female Genitourinary: No symptoms reported Musculoskeletal: No symptoms reported Skin: No symptoms reported Hematologic/Lymphatic: No symptoms reported Neurological/Psychological: See HPI -: Yes All other systems reviewed and negative Physical Exam - Vital signs Vitals: Temp Pulse Resp BP Pulse Ox 97.5 F 108 H 18 129/60 H 99 02/24/20 01:45 02/24/20 01:45 02/24/20 01:45 02/24/20 01:45 02/24/20 01:45 - Notes Notes: CONSTITUTIONAL [Vital signs reviewed, Patient appears comfortable, Alert and oriented X 3, Normal stature.] HEAD [Atraumatic, Normocephalic.] EYES [Eyes are normal to inspection, No discharge from eyes, Extraocular muscles intact, Sclera are normal, Conjunctiva are normal.] ] NECK [Normal ROM, No jugular venous distention, No meningeal signs, no carotid bruit.] RESPIRATORY CHEST [Chest is nontender, Breath sounds normal, No respiratory distress.] CARDIOVASCULAR [RRR, No murmurs, Normal S1 S2, No rub, No gallop.] ABDOMEN [Abdomen is nontender, No pulsatile masses, No other masses, Bowel sounds normal, No distension, No peritoneal signs, No hernias.] BACK [There is no CVA Tenderness, There is no tenderness to palpation, Normal inspection.] UPPER EXTREMITY [Inspection normal, No cyanosis, No clubbing, No edema, 2+ radial pulses.] LOWER EXTREMITY [Inspection normal, No cyanosis, No clubbing, No edema, No calf tenderness, 2+ femoral pulses.] NEURO [No focal motor deficits, No focal sensory deficits, Speech normal.] SKIN [Skin is warm, Skin is dry, Skin is normal color.] LYMPHATIC [No adenopathy in neck.] PSYCHIATRIC [Normal affect. ] Course - Re-evaluation Re-evalutation: 02/24/20 05:45 Patient is medically cleared - Vital Signs Vital signs: Temp Pulse Resp BP Pulse Ox 97.5 F 108 H 18 129/60 H 99 02/24/20 01:45 02/24/20 01:45 02/24/20 01:45 02/24/20 01:45 02/24/20 01:45 - Laboratory Result Diagrams: 02/24/20 02:09 02/24/20 02:09 Laboratory results interpreted by me: 02/24/20 02/24/20 02/24/20 02:00 02:09 02:09 RDW 14.7 H Band Neutrophils % 2 L Monocytes % (Manual) 17 H Glucose 113 H Urine Protein 30 H Urine Blood MODERATE H Ur Leukocyte Esterase TRACE H Salicylates < 1.0 L Acetaminophen < 10 L - EKG Interpretation by Me Additional EKG results interpreted by me: 02/24/20 02:37 EKG obtained on 02/24/2020 at 0203 hrs. was interpreted by this MD. Findings: Sinus tachycardia, heart rate 100, isolated PVC is present, borderline left axis deviation is present, MN interval is within normal limits, P waves proceed QRS complexes, QRS complex appears narrow, normal QT interval, there are no obvious patterns of ST segment elevation or depression present to suggest acute myocardial ischemia or infarction. Impression: Sinus tachycardia with isolated PVC, borderline left axis deviation, nonspecific ST segments. Discharge - Discharge Clinical Impression: Agitation states as acute reaction to exceptional (gross) stress Condition: Stable Disposition: OTHER Referrals: JUANPABLO LOVE MD [ACTIVE PROVISIONAL STAFF] - Follow up as needed
[2020-02-24 02:37] LABS: ALBUMIN 4.4 g/dL (3.5-5.0); ALKALINE PHOSPHATASE 90 U/L (38-126); ANION GAP 9 (5-19); ASPARTATE AMINO TRANSFERASE 34 U/L (14-36); BILIRUBIN,DIRECT 0.2 mg/dL (0.0-0.4); BILIRUBIN,TOTAL 1.1 mg/dL (0.2-1.3); BLOOD UREA NITROGEN 9 mg/dL (7-20); CALCIUM 9.4 mg/dL (8.4-10.2); CARBON DIOXIDE 26 mmol/L (22-30); CHLORIDE 105 mmol/L (98-107); GLUCOSE 113 mg/dL (75-110); POTASSIUM 4.2 mmol/L (3.6-5.0); TOTAL PROTEIN 7.5 g/dL (6.3-8.2)
[2020-02-24 02:42] LABS: ACETAMINOPHEN < 10 ug/mL (10-30); ALCOHOL < 10 mg/dL (NONE DETECTED); SALICYLATE < 1.0 mg/dL (2.0-20.0)
[2020-02-24 02:44] LABS: URINE AMPHETAMINES SCREEN NEGATIVE; URINE BARBITURATES SCREEN NEGATIVE; URINE BENZODIAZEPINES SCREEN NEGATIVE; URINE COCAINE SCREEN NEGATIVE; URINE MARIJUANA (THC) SCREEN NEGATIVE; URINE METHADONE SCREEN NEGATIVE; URINE PHENCYCLIDINE SCREEN NEGATIVE
[2020-02-24 02:56] LABS: ABSOLUTE LYMPHOCYTES# (MANUAL) 1.2 10^3/uL (0.5-4.7); ABSOLUTE MONOCYTES # (MANUAL) 0.8 10^3/uL (0.1-1.4); ANISOCYTOSIS SLIGHT; BAND NEUTROPHILS % (MANUAL) 2 % (3-5); BASOPHILS % (MANUAL) 0 % (0-2); EOSINOPHILS % (MANUAL) 0 % (0-6); LYMPHOCYTES % (MANUAL) 21 % (13-45); MONOCYTES % (MANUAL) 17 % (3-13); PLATELET COMMENT ADEQUATE; POLYCHROMASIA SLIGHT; SEGMENTED NEUTROPHILS % (MAN) 56 % (42-78); TOTAL CELLS COUNTED 100
[2020-02-24] MEDS ORDERED: ONDANSETRON 4 MG TAB.RAPDIS PO ONE (06:56)
--- NOTE | 2020-02-24 06:56 | ER Document Report ---
Doctor's Note Notes: 02/24/20 06:55 Patient has requested to be discharged. She is not currently on IVC papers. Patient denies any suicidal or homicidal ideation. Patient states she [place] to [place] [facility] [place]. Denies any previous hospitalizations for mental health issues. No previous suicide attemp ts. Patient is alert and oriented x3. She is acting appropriately. Answers questions appropriately. Patient states she got into an argument last night with her latbka-ie-vws but did not verbalize any suicidal and or homicidal ideation. Patient states that her mother called the police because she thought that she would harm her children which she states she never had and never would. Patient states she feels safe to be discharged home. Does not live with her in-laws. Patient was counseled on the importance of outpatient follow-up with her therapist. Patient was given strict return to the emergency room guidelines. Return for any new or worsening symptoms. All questions were answered. Patient verbalized understanding and agrees with plan of care. Just prior to discharge patient came out of the room and vomited once. Given ODT Zofran. Patient has no other medical complaints, no shortness of breath, no difficulty breathing. No abdominal pain. Remained stable for discharge. 02/24/20 06:57 02/24/20 07:00 02/24/20 07:02 Discharge - Discharge Clinical Impression: Agitation states as acute reaction to exceptional (gross) stress Condition: Stable Disposition: HOME, SELF-CARE Instructions: Anxiety ([facility]), Depression ([facility]) Additional Instructions: Call your therapist for an outpatient follow-up appointment. Continue with your current home medications. Return to the emergency room for any new or worsening symptoms. Referrals: JUANPABLO LOVE MD [ACTIVE PROVISIONAL STAFF] - Follow up as needed
[2020-02-24 07:30] VITALS: BP 130/77
--- NOTE | 2020-02-26 02:35 | EKG REPORT ---
SEVERITY:- BORDERLINE ECG - SINUS TACHYCARDIA BORDERLINE LEFT AXIS DEVIATION : Confirmed by: Jagjit Trevino MD 26-Feb-2020 02:35:14
== END 2020-02-24 07:20 | disposition home or self-care (01) ==
LOC: ER 01:35
DX: R45.1 Restlessness and agitation (principal); Z90.49 Acquired absence of other specified parts of digestive tract
CPT/HCPCS: 93005; 99284; 36415; 80307 ×4; 85025; 80053; 81001; 93010; S0119